=== PATIENT | female | born 1960 | race Caucasian/White ===

== ENCOUNTER 2018-11-02 13:15 | Emergency (ER) | payer OTHER ==
[2018-11-02] MEDS ORDERED: Ondansetron PF 4 MG/2 ML Vial ONE (14:13)
[2018-11-02] MEDS ORDERED: Ketorolac Tromethamine 30 MG/ML VIAL ONE ×2 (14:13→14:16)
[2018-11-02] MEDS ORDERED: Morphine 4 MG/ML VIAL ONE (14:13)
--- NOTE | 2018-11-02 14:27 | RAD ---
3 VIEW LEFT KNEE: Date: 11/02/18 INDICATION: Injury. FINDINGS: There is a large soft tissue hematoma anterior to the left knee. There is mild cephalad location of t he patella. No discrete fracture is seen. IMPRESSION: High-riding patella with prominent hematoma anteriorly. Correlate clinically. POS: TPC
[2018-11-02] MEDS ORDERED: Morphine 2 MG/ML SYRINGE ONE ×2 (15:59→19:56)
[2018-11-02] MEDS ORDERED: Ondansetron PF 4 MG/2 ML Vial IV PRN (16:15)
[2018-11-02] MEDS ORDERED: traMADol HCl 50 MG TAB PO PRN ×2 (16:15)
[2018-11-02] MEDS ORDERED: Morphine 2 MG/ML SYRINGE IVP PRN (16:15)
[2018-11-02] MEDS ORDERED: Acetaminophen 325 MG TAB PO PRN (16:15)
[2018-11-02] MEDS ORDERED: Communication Order-Pharmacy FS SCH (16:15)
[2018-11-02] MEDS ORDERED: TETANUS AND DIPHTHERIA TOX/PF 0.5 ML DISP.SYRIN IM SCH (16:15)
[2018-11-02] MEDS ORDERED: CEFAZOLIN 2 GM in Premix Bag 1 BAG IVPB SCH (16:45)
[2018-11-02 16:47] LABS: Mean Corpuscular HGB CONC 33.5 g/dL (32.0-36.0); Mean Corpuscular Hemoglobin 29.9 pg (27.0-31.0); Mean Platelet Volume 6.5 fL (7.4-10.4); Platelet Count 399 thou/uL (130-400); RBC Distribution Width 11.6 % (11.5-14.5); Red Blood Cell (RBC) Count 5.03 mill/uL (4.20-5.40); White Blood Cell (WBC) Count 12.8 thou/uL (4.8-10.8)
--- NOTE | 2018-11-02 16:51 | HP ---
REQUESTING PHYSICIAN: Landon Patel NP CONSULTING PHYSICIAN: Alejo Cheema MD REASON FOR ADMISSION: Status post fall with a left knee injury. HISTORY OF PRESENT ILLNESS: This is a 58-year-old female, who presented to the [facility] by private vehicle after she suffered a mechanical fall while at work. 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 She was unable to straighten the leg and was unable to bear weight at that time. Workup here in the emergency department revealed evidence of patella jordan without any evidence for fracture, but concern for possible tendon rupture. We were consulted for this reason. Currently at bedside, the patient denies any numbness or tingling. She states she is unable to lift her leg. She denies any history of previous knee injuries. She denies hitting her head or losing consciousness at the time of her fall. PAST MEDICAL HISTORY: The patient states she is healthy and denies any current medical conditions. PAST SURGICAL HISTORY: Include x3 and right ankle surgery x3. FAMILY HISTORY: Reviewed and noncontributory. SOCIAL HISTORY: The patient is single and lives at home in a first-floor apartment alone. 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 She is a nonsmoker and nondrinker. REVIEW OF SYSTEMS: A 10-point review of systems conducted and otherwise negative except for stated above. PHYSICAL EXAMINATION: VITAL SIGNS: Including blood pressure of 149/99, pulse of 99, respiratory rate of 18, temperature of 97.9, and O2 saturation of 99% on room air. Pain level is 9/10. GENERAL: The patient is awake and alert. She is in no apparent distress. She is lying supine on a stretcher at this time. She has 2 work friends who are present in the room with her. She is in no apparent distress. She is pleasant and cooperative with exam today. HEENT: Head is normocephalic and atraumatic. NECK: Supple. Trachea is midline. LUNGS: Breathing is nonlabored. HEART: Regular rate and rhythm. EXTREMITIES: All 4 extremities were evaluated. She moves the upper extremities without any difficulty. She moves the right lower extremity without any difficulty. The left lower extremity was noted to have a large hematoma present to the knee. This is very tense. She is unable to do a straight leg raise. She is able to move her toes and sensation is intact distally. Capillary refill is 2 seconds. When I palpate over the anterior knee, it is difficult to palpate the patella secondary to the hemarthrosis at this time. Skin is intact overlying the knee. Negative log roll. All other extremities show no signs of obvious trauma. NEUROLOGIC: Cranial nerves 2 through 12 grossly intact. RADIOGRAPHIC FINDINGS: Including two views of the left knee demonstrate no evidence for acute fracture. There is evidence for patella jordan. ASSESSMENT: Left knee patellar tendon tear. PLAN: At this time, the patient shows signs of clinical evidence of a patellar tendon tear, status post fall with patella jordan on radiographic imaging and large hemarthrosis. We have discussed several options with her today regarding her treatment plan. We feel that it is best to go ahead and put her in house and keep her n.p.o. at midnight in order to evacuate this hematoma tomorrow and give her some pain relief. At that time, we will repair the patellar tendon. Postoperatively, the patient will have to remain with her leg in extension for approximately 6 to 8 weeks. Weightbearing will be limited in the beginning. She verbalizes understanding of this plan of care. She also understands the risks and benefits associated with surgery. We will plan to proceed with surgery tomorrow. All questions have been answered. Job ID: [id number]
--- NOTE | 2018-11-02 16:56 | RAD ---
XR Chest 1 View Portable History: Injury. Tripped and landed on knee. Comparison: None. Findings: Lungs are clear. No pneumothorax or effusion. Heart size upper limits of normal. No acute o sseous abnormality. Impression: No acute intrathoracic abnormality.
[2018-11-02 17:07] LABS: ALT (SGPT) 51 U/L (8-55); AST (SGOT) 38 U/L (5-34); Albumin 4.4 g/dL (3.5-5.0); Alkaline Phosphatase 55 U/L (40-150); Anion Gap 15 mmol/L (10-20); BUN (Urea Nitrogen) 14 mg/dL (9.8-20.1); Bilirubin, Total 0.7 mg/dL (0.2-1.2); Calc. Creatinine Clearance 0 mL/min (70-130); Calcium 9.9 mg/dL (7.8-10.44); Carbon Dioxide 24 mmol/L (22-29); Chloride 101 mmol/L (98-107); Estimated GFR-MDRD 70; Globulin 3.1 g/dL (2.4-3.5); Glucose 136 mg/dL (70-105); Potassium 4.3 mmol/L (3.5-5.1); Protein, Total 7.5 g/dL (6.0-8.3); Sodium 136 mmol/L (136-145)
[2018-11-02 17:11] LABS: MDiff Complete? YES; Neutrophil 65 % (42-75)
[2018-11-02 17:12] LABS: Band 14 % (5-11); Lymphocytes 10 % (21-51); Monocytes 4 % (0-10); Platelet Morphology Comment Appears Adequate; RBC Morphology Normal; Reactive Lymphocytes 6 % (0-10)
--- NOTE | 2018-11-02 18:53 | RAD ---
RIGHT KNEE TWO VIEWS: 11/02/18 HISTORY: Fall. Pain. FINDINGS: Mild degenerative change in the medial compartment. There is sclerosis and osteophyte formation. Los s of joint space height is noted. No fractures or malalignment. No joint effusion. Mild degenerative change of the patellofemoral compartment. IMPRESSION: No fracture. POS: PPP
--- NOTE | 2018-11-02 19:45 | CON ---
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 She reports that earlier today she tripped in her classroom, landing directly onto her left knee. Since this episode, she has been unable to actively extend her leg at the knee and has been unable to bear weight due to pain. She was seen and evaluated in the emergency room at [facility], where there was concern about a possible patellar tendon rupture due to a radiographic reading of patella jordan as well as this tense hemarthrosis. As such, the patient was now scheduled for admission and possible surgical intervention. The patient had a workup by my physician registered medical assistant. I happened to be in the hospital this evening and decided to stop by and see the patient in the emergency room and that is the basis for this exam. PAST MEDICAL HISTORY: Otherwise healthy. PAST SURGICAL HISTORY: Multiple ankle surgery secondary to instability. SOCIAL HISTORY: The patient lives in the [place] area. 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 She is a nonsmoker. Does not consume recreational drugs or alcohol. FAMILY HISTORY: Noncontributory. PHYSICAL EXAMINATION: VITAL SIGNS: She has a heart rate of 99, respiratory rate of 18, blood pressure of 149/99, and temperature of 97.9. HEENT: Atraumatic and normocephalic. RESPIRATORY: Respiration is unlabored. MUSCULOSKELETAL: Exam is otherwise limited to this left lower extremity with comparison exam of the right knee. The left lower extremity remarkable for an atraumatic hip and ankle. She is wiggling her toes. The patient does have a very large hemarthrosis of the knee with blood extending into the prepatellar bursa as well. When asked to hold her knee in an extended position against gravity, she is unable to do so, although there is a flicker of ability to extend the lower leg. Palpation is very difficult due to the blood within the prepatellar bursa. It is difficult to even palpate the patella, much less the patellar tendon and quadriceps mechanism. She does have ecchymosis that is now beginning to form along the medial aspect of the knee, which was not present on the initial examination. She is exquisitely tender along the path of the medial patellofemoral ligament. She has a very strong apprehension sign as well. IMAGING DATA: X-rays: Two-view x-ray of this knee was obtained earlier today and on my inspection, there is patella jordan, although it is not obviously pathologic. The Insall-Salvati index is measured of 1.16. Today, I obtained a comparison of AP and lateral x-ray of the contralateral knee and the Insall-Salvati index of this knee is 1.14. ASSESSMENT: At this time, I believe the patient has sustained a patellar dislocation or subluxation with hemarthrosis. I believe that based on the comparison x-rays, her normal Insall-Salvati index is approaching 1.2 and that the patella jordan read on plain x-rays is actually her baseline. PLAN: At this time, the patient will be kept in the knee immobilizer. She may be discharged from the emergency room to home. She may be weightbearing as tolerated with a walker while using the knee immobilizer. She should ice the knee and keep it elevated as much as possible. The pain medication will be prescribed by the emergency room staff. I would like to see her in the office in approximately 1 week's time for re-evaluation, and at that time, we will convert her to a patellar stabilizing brace and begin working on gentle range of motion exercises. She appears comfortable with this discussion and plan. We will see her as an outpatient in our clinic in the coming week. Job ID: [id number]
[2018-11-03] MEDS ORDERED: Aspirin 81 mg Enteric Coated Tablet PO SCH (21:00)
--- NOTE | 2018-11-06 13:12 | EKG ---
Test Reason : Blood Pressure : / mmHG Vent. Rate : 098 BPM Atrial Rate : 098 BPM P-R Int : 148 ms QRS Dur : 068 ms QT Int : 338 ms P-R-T Axes : 062 -11 029 degrees QTc Int : 431 ms Normal sinus rhythm Normal ECG Confirmed by SATHISH HAMILTON ([id number]), video effects editor ASHLY COLEMAN ([id number]) on 11/06/2018 1:12:06 PM Referred By: LESLY ROJAS Confirmed By:SATHISH HAMILTON
== END 2018-11-02 20:27 | disposition home or self-care (01) ==
LOC: ERS 13:15
DX: S89.92XA Unspecified injury of left lower leg, initial encounter (principal); W01.0XXA Fall on same level from slipping, tripping and stumbling without subsequent striking against object, initial encounter; Y99.0 Civilian activity done for income or pay
CPT/HCPCS: 36415; 71045; 80053; 85025; 93005; 96372; 96374; 96376; J1885; J2270; J2405

== ENCOUNTER 2020-04-13 15:48 | Inpatient (IN) | payer BC ==
[2020-04-13] MEDS ORDERED: Ondansetron PF 4 MG/2 ML Vial ONE (16:11)
[2020-04-13] MEDS ORDERED: Morphine 4 MG/ML VIAL ONE (16:11)
[2020-04-13 16:25] LABS: #Basophils 0.1 thou/uL (0.0-0.2); #Eosinphils 0.1 thou/uL (0.0-0.7); #Lymphocytes 1.2 thou/uL (1.20-3.40); #Monocytes 0.4 thou/uL (0.11-0.59); #Neutrophils 13.3 thou/uL (1.40-6.50); %Basophils 0.5 % (0.0-1.0); %Eosinophils 0.5 % (0.0-10.0); %Lymphocytes 7.8 % (21.0-51.0); %Monocytes 2.6 % (0.0-10.0); %Neutrophils 88.6 % (42.0-75.0); Hemoglobin 15.5 g/dL (12.0-16.0); Mean Corpuscular HGB CONC 33.3 g/dL (32.0-36.0); Mean Corpuscular Hemoglobin 28.7 pg (27.0-31.0); Mean Corpuscular Volume 86.1 fL (78.0-98.0); Mean Platelet Volume 6.9 fL (7.4-10.4); Platelet Count 433 thou/uL (130-400); RBC Distribution Width 12.3 % (11.5-14.5); White Blood Cell (WBC) Count 15.1 thou/uL (4.8-10.8)
[2020-04-13 16:33] LABS: INR-International Normal Ratio 1.1; PTT 35.2 sec (22.9-36.1); Prothrombin Time 14.1 sec (12.0-14.7)
[2020-04-13] MEDS ORDERED: Cefepime 2 GM VIAL ONE (16:35)
[2020-04-13 16:48] LABS: ALT (SGPT) 37 U/L (8-55); AST (SGOT) 52 U/L (5-34); Albumin 3.4 g/dL (3.5-5.0); Alkaline Phosphatase 99 U/L (40-110); Anion Gap 13 mmol/L (10-20); BUN (Urea Nitrogen) 7 mg/dL (9.8-20.1); Bilirubin, Total 1.2 mg/dL (0.2-1.2); Calc. Creatinine Clearance 0 mL/min (70-130); Calcium 9.2 mg/dL (7.8-10.44); Carbon Dioxide 25 mmol/L (22-29); Chloride 91 mmol/L (98-107); Globulin 3.6 g/dL (2.4-3.5); Glucose 134 mg/dL (70-105); Sodium 124 mmol/L (136-145)
[2020-04-13 18:04] LABS: Base Excess-Venous -4.6 mmol/L (-2.0 to 3.0); Bicarbonate (HCO3v) 21.7 mmol/L (22.0-28.0); CO2 Tension (PvCO2) 43.7 mmHg (40.0-50.0); Calcium, Ionized 0.88 mmol/L (1.15-1.33); Chloride 100 mmol/L (98-107); Potassium 3.2 mmol/L (3.5-5.1); Sodium 132 mmol/L (138-145); vO2 Saturation-calc 65.4 % (60.0-85.0)
[2020-04-13] MEDS ORDERED: Ondansetron ODT 4 MG TAB PO PRN (18:27)
[2020-04-13] MEDS ORDERED: Acetaminophen 325 MG TAB PO PRN (18:27)
[2020-04-13] MEDS ORDERED: Furosemide 20 MG/2 ML VIAL SLOW IVP SCH (18:45)
[2020-04-13 18:53] LABS: SARS-CoV-2 NAA Rapid Test Not Detected (NotDetected)
[2020-04-13] MEDS: HYDROcodone/Acetaminophen 5/325 mg Tablet PO PRN (21:47)
[2020-04-13] MEDS: hydrOXYzine 25 MG TAB PO PRN (23:03)
[2020-04-14] MEDS: Cefepime 2 GM in Sodium Chloride 0.9% 100 ML IVPB SCH ×2 (04:11→16:19)
[2020-04-14] MEDS: HYDROcodone/Acetaminophen 5/325 mg Tablet PO PRN (04:17)
[2020-04-14 04:33] LABS: #Eosinphils 0.1 thou/uL (0.0-0.7); #Lymphocytes 1.1 thou/uL (1.20-3.40); #Monocytes 0.5 thou/uL (0.11-0.59); #Neutrophils 11.1 thou/uL (1.40-6.50); %Basophils 0.4 % (0.0-1.0); %Eosinophils 0.9 % (0.0-10.0); %Lymphocytes 8.7 % (21.0-51.0); %Monocytes 3.6 % (0.0-10.0); %Neutrophils 86.4 % (42.0-75.0); Mean Corpuscular HGB CONC 32.6 g/dL (32.0-36.0); Mean Corpuscular Hemoglobin 28.6 pg (27.0-31.0); Mean Corpuscular Volume 87.8 fL (78.0-98.0); Platelet Count 409 thou/uL (130-400); RBC Distribution Width 12.3 % (11.5-14.5); Red Blood Cell (RBC) Count 5.57 mill/uL (4.20-5.40); White Blood Cell (WBC) Count 12.8 thou/uL (4.8-10.8)
[2020-04-14 04:46] LABS: Anion Gap 16 mmol/L (10-20); BUN (Urea Nitrogen) 8 mg/dL (9.8-20.1); Calc. Creatinine Clearance 135 mL/min (70-130); Calcium 9.5 mg/dL (7.8-10.44); Carbon Dioxide 22 mmol/L (22-29); Chloride 93 mmol/L (98-107); Glucose 94 mg/dL (70-105); Potassium 4.5 mmol/L (3.5-5.1); Sodium 126 mmol/L (136-145)
[2020-04-14] MEDS: Vancomycin 1.5 GRAM/300 ML BAG 1.5 GM in Premix Bag 1 BAG IVPB SCH ×2 (05:41→17:48)
[2020-04-14] MEDS ORDERED: VANCOMYCIN 2 GRAM/400 ML BAG IVPB SCH (06:00)
[2020-04-14 11:59] LABS: Bacteria/HPF None Seen HPF (None Seen); Bilirubin Negative (Negative); Blood, Urine Negative (Negative); Clarity Clear (Clear); Glucose, Urine (Dipstick) Normal (Negative); Ketone, Urine 10 mg/dL (Negative); Leukocyte Negative Leu/uL (Negative); Nitrite Negative (Negative); Protein, Urine (Dipstick) 30 mg/dL (Neg-Trace); RBC/HPF 0-3 HPF (0-3); Specific Gravity, Urine 1.032 (1.002-1.036); Squamous Epithelial 0-3 HPF (0-3); Urobilinogen Normal mg/dL (Less than 2); WBC/HPF 0-3 HPF (0-3); pH, Urine 5.5 (5.0-9.0)
[2020-04-14] MEDS ORDERED: Lidocaine 1% (PF) 30 ML VIAL ONE (14:43)
[2020-04-14] MEDS ORDERED: hydrOXYzine 25 MG TAB PO SCH (14:45)
[2020-04-14] MEDS ORDERED: Lorazepam 2 MG/ML VIAL SLOW IVP SCH (15:00)
[2020-04-14] MEDS: Enoxaparin Sodium 40 MG/0.4 ML SYRINGE SC SCH (16:19)
[2020-04-14 16:29] LABS: Fluid, Triglycerides 15 mg/dL (Not Available); Pleural Fluid, Amylase Less than 30 U/L (Not Available); Pleural Fluid, Glucose 125 mg/dL; Pleural Fluid, LDH 84 U/L (Not Available); Pleural Fluid, Protein 2.9 g/dL
[2020-04-14 16:45] LABS: RBC Count-Automated (BF) 4057 /cu.mm; WBC/Nucleated-Auto (BF) 1662 uL
[2020-04-14 16:47] LABS: BF Color Yellow; Body Fluid Source Pleural Fluid; Clarity Hazy (Clear); Tube # 2
[2020-04-14 16:48] LABS: Fluid, pH - Pleural Fld Greater than 7.50 (7.60 - 7.66)
[2020-04-14 16:51] LABS: BF Segmented Neutrophils 15 %; Cell Count Non Hematic 21 %; Eosinophils 1 %; Lymphocytes 63 %
[2020-04-15] MEDS: Cefepime 2 GM in Sodium Chloride 0.9% 100 ML IVPB SCH ×2 (04:00→15:46)
[2020-04-15 05:25] LABS: #Basophils 0.1 thou/uL (0.0-0.2); #Eosinphils 0.3 thou/uL (0.0-0.7); #Lymphocytes 1.3 thou/uL (1.20-3.40); #Monocytes 0.5 thou/uL (0.11-0.59); #Neutrophils 9.5 thou/uL (1.40-6.50); %Basophils 0.8 % (0.0-1.0); %Eosinophils 2.5 % (0.0-10.0); %Lymphocytes 11.1 % (21.0-51.0); %Monocytes 4.5 % (0.0-10.0); %Neutrophils 81.1 % (42.0-75.0); Hemoglobin 13.6 g/dL (12.0-16.0); Mean Corpuscular HGB CONC 32.9 g/dL (32.0-36.0); Mean Corpuscular Hemoglobin 28.9 pg (27.0-31.0); Mean Corpuscular Volume 87.9 fL (78.0-98.0); Mean Platelet Volume 6.9 fL (7.4-10.4); Platelet Count 373 thou/uL (130-400); RBC Distribution Width 12.4 % (11.5-14.5); Red Blood Cell (RBC) Count 4.71 mill/uL (4.20-5.40); White Blood Cell (WBC) Count 11.7 thou/uL (4.8-10.8)
[2020-04-15 05:42] LABS: Vancomycin, Trough 19.1 ug/mL
[2020-04-15 05:45] LABS: Anion Gap 12 mmol/L (10-20); BUN (Urea Nitrogen) 12 mg/dL (9.8-20.1); Calc. Creatinine Clearance 154 mL/min (70-130); Carbon Dioxide 24 mmol/L (22-29); Chloride 95 mmol/L (98-107); Glucose 117 mg/dL (70-105); Potassium 4.8 mmol/L (3.5-5.1); Sodium 126 mmol/L (136-145)
[2020-04-15] MEDS: VANCOMYCIN 1.25 GM/250 ML BAG 1.25 GM in Premix Bag 1 BAG IVPB SCH ×2 (05:52→18:37)
[2020-04-15] MEDS ORDERED: Vancomycin HCl 1.25 GM in Sodium Chloride 0.9% 250 ML 250 ML IVPB SCH (06:00)
[2020-04-15] MEDS: HYDROcodone/Acetaminophen 5/325 mg Tablet PO PRN ×3 (09:33→20:50)
[2020-04-15] MEDS: Enoxaparin Sodium 40 MG/0.4 ML SYRINGE SC SCH (09:33)
[2020-04-15] MEDS ORDERED: Polyethylene Glycol 3350 17 GM Packet PO PRN (09:41)
[2020-04-15] MEDS: hydrOXYzine 25 MG TAB PO PRN ×2 (10:59→20:49)
[2020-04-15] MEDS: Melatonin 3 MG TAB PO SCH (20:49)
[2020-04-16] MEDS: HYDROcodone/Acetaminophen 5/325 mg Tablet PO PRN ×3 (00:50→15:29)
[2020-04-16] MEDS: hydrOXYzine 25 MG TAB PO PRN ×2 (03:28→05:36)
[2020-04-16] MEDS: Cefepime 2 GM in Sodium Chloride 0.9% 100 ML IVPB SCH ×2 (03:29→18:52)
[2020-04-16 05:24] LABS: #Basophils 0.1 thou/uL (0.0-0.2); #Eosinphils 0.3 thou/uL (0.0-0.7); #Lymphocytes 1.5 thou/uL (1.20-3.40); #Monocytes 0.6 thou/uL (0.11-0.59); #Neutrophils 7.2 thou/uL (1.40-6.50); %Basophils 0.8 % (0.0-1.0); %Eosinophils 2.7 % (0.0-10.0); %Lymphocytes 15.3 % (21.0-51.0); %Monocytes 5.9 % (0.0-10.0); %Neutrophils 75.3 % (42.0-75.0); Hemoglobin 14.2 g/dL (12.0-16.0); Mean Corpuscular HGB CONC 32.1 g/dL (32.0-36.0); Mean Corpuscular Hemoglobin 28.5 pg (27.0-31.0); Mean Corpuscular Volume 88.7 fL (78.0-98.0); Mean Platelet Volume 6.9 fL (7.4-10.4); Platelet Count 383 thou/uL (130-400); RBC Distribution Width 12.2 % (11.5-14.5); Red Blood Cell (RBC) Count 4.97 mill/uL (4.20-5.40); White Blood Cell (WBC) Count 9.6 thou/uL (4.8-10.8)
[2020-04-16] MEDS: VANCOMYCIN 1.25 GM/250 ML BAG 1.25 GM in Premix Bag 1 BAG IVPB SCH ×2 (05:35→19:33)
[2020-04-16 05:45] LABS: Anion Gap 12 mmol/L (10-20); BUN (Urea Nitrogen) 13 mg/dL (9.8-20.1); Calc. Creatinine Clearance 150 mL/min (70-130); Calcium 9.7 mg/dL (7.8-10.44); Carbon Dioxide 25 mmol/L (22-29); Chloride 97 mmol/L (98-107); Glucose 114 mg/dL (70-105); Potassium 4.9 mmol/L (3.5-5.1); Sodium 129 mmol/L (136-145)
[2020-04-16] MEDS: Enoxaparin Sodium 40 MG/0.4 ML SYRINGE SC SCH (09:00)
[2020-04-16] MEDS ORDERED: Levofloxacin 500 mg/D5W 100 ml Premix Bag ONE (09:49)
[2020-04-16] MEDS ORDERED: PROPOFOL 200 MG/20 ML VIAL ONE (10:27)
[2020-04-16] MEDS ORDERED: Rocuronium Bromide 10 MG/ML (10ML VIAL) ONE (10:27)
[2020-04-16] MEDS ORDERED: Glycopyrrolate 0.2 MG/ML 5 ML SYRINGE ONE (10:27)
[2020-04-16] MEDS ORDERED: Ondansetron PF 4 MG/2 ML Vial ONE (10:27)
[2020-04-16] MEDS ORDERED: Lidocaine 1% PF 5 ML VIAL ONE (10:27)
[2020-04-16] MEDS ORDERED: PHENYLEPHRINE-NS 100 MCG/ML 10 ML SYRINGE ONE (10:27)
[2020-04-16] MEDS ORDERED: Bupivacaine 0.25% HCL 30 ML VIAL ONE (11:56)
[2020-04-16] MEDS ORDERED: Bupivacaine PF 0.5% 30 ML VIAL ONE (11:56)
[2020-04-16] MEDS ORDERED: XYLOCAINE 2%-EPI 1:100,000 20 ML VIAL ONE (11:56)
[2020-04-16] MEDS ORDERED: Lidocaine 2% PF 5 ML VIAL ONE (11:56)
[2020-04-16] MEDS ORDERED: Fentanyl 100 MCG/2 ML VIAL ONE ×3 (11:58→14:04)
[2020-04-16] MEDS ORDERED: Phenylephrine 10 MG/ML VIAL ONE (11:58)
[2020-04-16] MEDS ORDERED: Famotidine/PF 20 mg/2ml Vial ONE (12:59)
[2020-04-16] MEDS ORDERED: SUGAMMADEX SODIUM 500 MG/5 ML VIAL ONE (13:29)
[2020-04-16] MEDS ORDERED: Acetaminophen 500 MG TAB PO PRN (13:34)
[2020-04-16] MEDS ORDERED: traMADol HCl 50 MG TAB PO PRN (13:34)
[2020-04-16] MEDS ORDERED: hydrOXYzine 10 MG TAB PO PRN (16:30)
[2020-04-16 17:44] LABS: Vancomycin, Trough 15.8 ug/mL
[2020-04-16] MEDS ORDERED: Furosemide 40 MG/4 ML VIAL ONE (20:36)
[2020-04-16 21:03] LABS: #Basophils 0.1 thou/uL (0.0-0.2); #Eosinphils 0.1 thou/uL (0.0-0.7); #Monocytes 0.5 thou/uL (0.11-0.59); #Neutrophils 11.4 thou/uL (1.40-6.50); %Basophils 0.4 % (0.0-1.0); %Eosinophils 0.4 % (0.0-10.0); %Lymphocytes 7.7 % (21.0-51.0); %Monocytes 3.8 % (0.0-10.0); %Neutrophils 87.7 % (42.0-75.0); Mean Corpuscular HGB CONC 31.9 g/dL (32.0-36.0); Mean Corpuscular Hemoglobin 28.6 pg (27.0-31.0); Mean Corpuscular Volume 89.5 fL (78.0-98.0); Mean Platelet Volume 6.6 fL (7.4-10.4); Platelet Count 459 thou/uL (130-400); RBC Distribution Width 12.5 % (11.5-14.5); Red Blood Cell (RBC) Count 5.24 mill/uL (4.20-5.40)
[2020-04-16 21:09] LABS: Actual Bicarbonate (HCO3a) 27.4 mEq/L (22-28); Analyzer IN Cardio OR; Base Excess (BEa) -4.2 mEq/L (-2.0 to +3.0); Calcium, Ionized (arterial) 1.33 mmol/L (1.12-1.30); Hemoglobin (Hb) 15.2 g/dL (12.0-16.0); O2 Tension (PaO2), arterial 138.8 mmHg (> 80.0); Potassium - ABG Lab 5.32 mmol/L (3.70-5.30)
[2020-04-16 21:10] LABS: pH, Arterial 7.13 (7.35-7.45)
[2020-04-16 21:11] LABS: CO2 Tension 83.8 mmHg (35.0-45.0); Puncture Site LRA
[2020-04-16 21:40] LABS: ALT (SGPT) 18 U/L (8-55); AST (SGOT) 26 U/L (5-34); Albumin 3.4 g/dL (3.5-5.0); Alkaline Phosphatase 94 U/L (40-110); Anion Gap 15 mmol/L (10-20); BUN (Urea Nitrogen) 13 mg/dL (9.8-20.1); Bilirubin, Total 0.5 mg/dL (0.2-1.2); Calc. Creatinine Clearance 157 mL/min (70-130); Calcium 9.9 mg/dL (7.8-10.44); Carbon Dioxide 25 mmol/L (22-29); Chloride 97 mmol/L (98-107); Globulin 3.5 g/dL (2.4-3.5); Glucose 141 mg/dL (70-105); Potassium 5.6 mmol/L (3.5-5.1); Protein, Total 6.9 g/dL (6.0-8.3); Sodium 131 mmol/L (136-145)
[2020-04-16 22:02] LABS: CKMB 2.8 ng/mL (0-6.6)
[2020-04-16] MEDS: Melatonin 3 MG TAB PO SCH (22:11)
[2020-04-16] MEDS ORDERED: Furosemide 40 MG/4 ML VIAL SLOW IVP STA (22:34)
[2020-04-17] MEDS ORDERED: Lorazepam 2 MG/ML VIAL SLOW IVP PRN (00:01)
[2020-04-17 00:58] LABS: Anion Gap 13 mmol/L (10-20); BUN (Urea Nitrogen) 13 mg/dL (9.8-20.1); Calc. Creatinine Clearance 153 mL/min (70-130); Calcium 9.6 mg/dL (7.8-10.44); Carbon Dioxide 28 mmol/L (22-29); Chloride 95 mmol/L (98-107); Glucose 115 mg/dL (70-105); Potassium 4.6 mmol/L (3.5-5.1); Sodium 131 mmol/L (136-145)
[2020-04-17 01:04] LABS: Troponin I 0.111 ng/mL (< 0.028)
[2020-04-17] MEDS: Cefepime 2 GM in Sodium Chloride 0.9% 100 ML IVPB SCH ×3 (03:44→17:34)
[2020-04-17 03:52] LABS: #Eosinphils 0.1 thou/uL (0.0-0.7); #Lymphocytes 0.8 thou/uL (1.20-3.40); #Monocytes 0.6 thou/uL (0.11-0.59); #Neutrophils 9.6 thou/uL (1.40-6.50); %Basophils 0.4 % (0.0-1.0); %Eosinophils 0.5 % (0.0-10.0); %Lymphocytes 7.5 % (21.0-51.0); %Monocytes 4.9 % (0.0-10.0); %Neutrophils 86.7 % (42.0-75.0); Hemoglobin 13.2 g/dL (12.0-16.0); Mean Corpuscular Hemoglobin 28.5 pg (27.0-31.0); Mean Corpuscular Volume 88.9 fL (78.0-98.0); Mean Platelet Volume 6.6 fL (7.4-10.4); Platelet Count 383 thou/uL (130-400); RBC Distribution Width 12.2 % (11.5-14.5); Red Blood Cell (RBC) Count 4.65 mill/uL (4.20-5.40); White Blood Cell (WBC) Count 11.1 thou/uL (4.8-10.8)
[2020-04-17 04:12] LABS: Anion Gap 13 mmol/L (10-20); BUN (Urea Nitrogen) 13 mg/dL (9.8-20.1); Calc. Creatinine Clearance 158 mL/min (70-130); Calcium 9.6 mg/dL (7.8-10.44); Carbon Dioxide 27 mmol/L (22-29); Chloride 95 mmol/L (98-107); Glucose 107 mg/dL (70-105); Potassium 4.7 mmol/L (3.5-5.1); Sodium 130 mmol/L (136-145)
[2020-04-17] MEDS ORDERED: Furosemide 20 MG/2 ML VIAL SLOW IVP SCH (04:30)
[2020-04-17] MEDS: VANCOMYCIN 1.25 GM/250 ML BAG 1.25 GM in Premix Bag 1 BAG IVPB SCH ×2 (05:34→18:11)
[2020-04-17] MEDS: Enoxaparin Sodium 40 MG/0.4 ML SYRINGE SC SCH (08:30)
[2020-04-17] MEDS ORDERED: Simethicone Chewable 80 MG TAB PO PRN (09:29)
[2020-04-17] MEDS: hydrOXYzine 25 MG TAB PO PRN ×2 (09:35→19:48)
[2020-04-17] MEDS ORDERED: Morphine 2 MG/ML VIAL SLOW IVP SCH (09:45)
[2020-04-17] MEDS ORDERED: Morphine 2 MG/ML VIAL ONE (09:47)
[2020-04-17] MEDS: HYDROcodone/Acetaminophen 5/325 mg Tablet PO PRN ×2 (12:02→21:27)
[2020-04-17] MEDS ORDERED: Furosemide 40 MG/4 ML VIAL SLOW IVP SCH (12:15)
[2020-04-17] MEDS: Melatonin 3 MG TAB PO SCH (21:01)
[2020-04-18] MEDS: Cefepime 2 GM in Sodium Chloride 0.9% 100 ML IVPB SCH ×3 (02:00→20:53)
[2020-04-18] MEDS: hydrOXYzine 25 MG TAB PO PRN ×3 (03:39→20:52)
[2020-04-18] MEDS: HYDROcodone/Acetaminophen 5/325 mg Tablet PO PRN ×2 (03:42→20:52)
[2020-04-18 03:46] LABS: #Basophils 0.1 thou/uL (0.0-0.2); #Eosinphils 0.2 thou/uL (0.0-0.7); #Lymphocytes 0.9 thou/uL (1.20-3.40); #Monocytes 0.6 thou/uL (0.11-0.59); %Basophils 0.5 % (0.0-1.0); %Eosinophils 1.5 % (0.0-10.0); %Lymphocytes 8.7 % (21.0-51.0); %Monocytes 5.4 % (0.0-10.0); %Neutrophils 83.9 % (42.0-75.0); Hemoglobin 13.9 g/dL (12.0-16.0); Mean Corpuscular HGB CONC 32.2 g/dL (32.0-36.0); Mean Corpuscular Hemoglobin 28.6 pg (27.0-31.0); Mean Corpuscular Volume 89.1 fL (78.0-98.0); Mean Platelet Volume 6.7 fL (7.4-10.4); Platelet Count 378 thou/uL (130-400); RBC Distribution Width 12.2 % (11.5-14.5); Red Blood Cell (RBC) Count 4.84 mill/uL (4.20-5.40); White Blood Cell (WBC) Count 10.7 thou/uL (4.8-10.8)
[2020-04-18 04:09] LABS: Anion Gap 13 mmol/L (10-20); BUN (Urea Nitrogen) 18 mg/dL (9.8-20.1); Calc. Creatinine Clearance 163 mL/min (70-130); Calcium 10.2 mg/dL (7.8-10.44); Carbon Dioxide 27 mmol/L (22-29); Chloride 96 mmol/L (98-107); Glucose 107 mg/dL (70-105); Potassium 4.4 mmol/L (3.5-5.1); Sodium 132 mmol/L (136-145)
[2020-04-18] MEDS: VANCOMYCIN 1.25 GM/250 ML BAG 1.25 GM in Premix Bag 1 BAG IVPB SCH ×2 (05:10→17:23)
[2020-04-18] MEDS: Enoxaparin Sodium 40 MG/0.4 ML SYRINGE SC SCH (09:14)
[2020-04-18] MEDS: HYDROcodone/Acetaminophen 10/325 mg Tablet PO PRN (11:58)
[2020-04-18 13:24] LABS: Actual Bicarbonate (HCO3a) 31.5 mEq/L (22-28); CO2 Tension 59.2 mmHg (35.0-45.0); Calcium, Ionized (arterial) 1.39 mmol/L (1.12-1.30); Carboxyhemoglobin (COHb) 0.8 gm% (0.0-3.0); Hemoglobin (Hb) 14.9 g/dL (12.0-16.0); Potassium - ABG Lab 4.44 mmol/L (3.70-5.30); pH, Arterial 7.34 (7.35-7.45)
[2020-04-18 13:26] LABS: Puncture Site RRA
[2020-04-18] MEDS: Melatonin 3 MG TAB PO SCH (20:53)
[2020-04-19] MEDS: Cefepime 2 GM in Sodium Chloride 0.9% 100 ML IVPB SCH ×3 (03:46→20:22)
[2020-04-19 04:06] LABS: #Basophils 0.1 thou/uL (0.0-0.2); #Eosinphils 0.2 thou/uL (0.0-0.7); #Lymphocytes 0.8 thou/uL (1.20-3.40); #Monocytes 0.4 thou/uL (0.11-0.59); #Neutrophils 6.3 thou/uL (1.40-6.50); %Basophils 0.9 % (0.0-1.0); %Eosinophils 2.4 % (0.0-10.0); %Lymphocytes 10.7 % (21.0-51.0); %Monocytes 5.5 % (0.0-10.0); %Neutrophils 80.6 % (42.0-75.0); Hemoglobin 13.5 g/dL (12.0-16.0); Mean Corpuscular HGB CONC 32.5 g/dL (32.0-36.0); Mean Corpuscular Volume 89.2 fL (78.0-98.0); Mean Platelet Volume 6.8 fL (7.4-10.4); Platelet Count 398 thou/uL (130-400); RBC Distribution Width 12.3 % (11.5-14.5); Red Blood Cell (RBC) Count 4.65 mill/uL (4.20-5.40); White Blood Cell (WBC) Count 7.8 thou/uL (4.8-10.8)
[2020-04-19] MEDS: hydrOXYzine 25 MG TAB PO PRN ×2 (04:07→22:44)
[2020-04-19] MEDS: HYDROcodone/Acetaminophen 5/325 mg Tablet PO PRN ×2 (04:33→22:43)
[2020-04-19 04:39] LABS: Anion Gap 10 mmol/L (10-20); BUN (Urea Nitrogen) 20 mg/dL (9.8-20.1); Calc. Creatinine Clearance 180 mL/min (70-130); Calcium 10.7 mg/dL (7.8-10.44); Carbon Dioxide 32 mmol/L (22-29); Chloride 97 mmol/L (98-107); Glucose 88 mg/dL (70-105); Potassium 4.1 mmol/L (3.5-5.1); Sodium 135 mmol/L (136-145)
[2020-04-19 05:35] LABS: Actual Bicarbonate (HCO3a) 29.3 mEq/L (22-28); Base Excess (BEa) 2.7 mEq/L (-2.0 to +3.0); CO2 Tension 52.9 mmHg (35.0-45.0); Calcium, Ionized (arterial) 1.41 mmol/L (1.12-1.30); Carboxyhemoglobin (COHb) 0.7 gm% (0.0-3.0); Hemoglobin (Hb) 14.7 g/dL (12.0-16.0); pH, Arterial 7.36 (7.35-7.45)
[2020-04-19 05:39] LABS: Puncture Site LRA
[2020-04-19] MEDS ORDERED: Lorazepam 1 MG TAB PO SCH (05:45)
[2020-04-19] MEDS: VANCOMYCIN 1.25 GM/250 ML BAG 1.25 GM in Premix Bag 1 BAG IVPB SCH ×2 (05:49→17:26)
[2020-04-19] MEDS ORDERED: Furosemide 20 MG/2 ML VIAL SLOW IVP SCH (06:15)
[2020-04-19] MEDS: Enoxaparin Sodium 40 MG/0.4 ML SYRINGE SC SCH (09:21)
[2020-04-19] MEDS ORDERED: Sodium Chloride 0.9% (PF) 10 ML VIAL FS PRN (11:15)
[2020-04-19 13:05] LABS: Thyroid Stimulating Hormone 1.6667 uIU/mL (0.35-4.94); Vitamin D, 25 Hydroxy 51.5 ng/ml (> 30.0)
[2020-04-19] MEDS: Pantoprazole 40 MG VIAL IVP SCH (14:37)
[2020-04-19 14:47] LABS: Phosphorus 2.5 mg/dL (2.3-4.7)
[2020-04-19] MEDS ORDERED: EPINEPHrine 1 MG/ML AMP ONE (15:09)
[2020-04-19] MEDS ORDERED: Bupivacaine PF 0.5% 30 ML VIAL ONE (15:09)
[2020-04-19] MEDS ORDERED: Midazolam HCl 2 mg/2 ml Vial ONE (15:44)
[2020-04-19] MEDS ORDERED: Fentanyl 100 MCG/2 ML VIAL ONE (15:44)
[2020-04-19 17:32] LABS: Vancomycin, Trough 16.1 ug/mL
[2020-04-19] MEDS: Melatonin 3 MG TAB PO SCH (20:22)
[2020-04-20] MEDS: Cefepime 2 GM in Sodium Chloride 0.9% 100 ML IVPB SCH ×2 (02:31→10:37)
[2020-04-20 04:36] LABS: #Basophils 0.1 thou/uL (0.0-0.2); #Eosinphils 0.2 thou/uL (0.0-0.7); #Lymphocytes 0.8 thou/uL (1.20-3.40); #Monocytes 0.3 thou/uL (0.11-0.59); #Neutrophils 7.4 thou/uL (1.40-6.50); %Basophils 0.8 % (0.0-1.0); %Eosinophils 1.8 % (0.0-10.0); %Monocytes 3.5 % (0.0-10.0); %Neutrophils 84.9 % (42.0-75.0); Hemoglobin 13.2 g/dL (12.0-16.0); Mean Corpuscular HGB CONC 31.1 g/dL (32.0-36.0); Mean Corpuscular Hemoglobin 27.5 pg (27.0-31.0); Mean Corpuscular Volume 88.5 fL (78.0-98.0); Platelet Count 386 thou/uL (130-400); RBC Distribution Width 12.4 % (11.5-14.5); Red Blood Cell (RBC) Count 4.81 mill/uL (4.20-5.40); White Blood Cell (WBC) Count 8.8 thou/uL (4.8-10.8)
[2020-04-20 04:39] LABS: Anion Gap 11 mmol/L (10-20); BUN (Urea Nitrogen) 23 mg/dL (9.8-20.1); Calc. Creatinine Clearance 178 mL/min (70-130); Carbon Dioxide 31 mmol/L (22-29); Chloride 99 mmol/L (98-107); Glucose 84 mg/dL (70-105); Potassium 4.1 mmol/L (3.5-5.1); Sodium 137 mmol/L (136-145)
[2020-04-20] MEDS: VANCOMYCIN 1.25 GM/250 ML BAG 1.25 GM in Premix Bag 1 BAG IVPB SCH (05:42)
[2020-04-20] MEDS: Enoxaparin Sodium 40 MG/0.4 ML SYRINGE SC SCH (08:48)
[2020-04-20] MEDS: Pantoprazole 40 MG VIAL IVP SCH (08:48)
[2020-04-20] MEDS: Morphine 2 MG/ML VIAL SLOW IVP PRN ×2 (13:59→20:35)
[2020-04-20] MEDS: Melatonin 3 MG TAB PO SCH (20:36)
[2020-04-20] MEDS: HYDROcodone/Acetaminophen 10/325 mg Tablet PO PRN (21:33)
[2020-04-21 04:11] LABS: #Basophils 0.1 thou/uL (0.0-0.2); #Eosinphils 0.2 thou/uL (0.0-0.7); #Lymphocytes 0.9 thou/uL (1.20-3.40); #Monocytes 0.3 thou/uL (0.11-0.59); %Basophils 0.6 % (0.0-1.0); %Lymphocytes 10.7 % (21.0-51.0); %Monocytes 3.7 % (0.0-10.0); %Neutrophils 83.1 % (42.0-75.0); Hemoglobin 13.6 g/dL (12.0-16.0); Mean Corpuscular HGB CONC 32.3 g/dL (32.0-36.0); Mean Corpuscular Hemoglobin 28.5 pg (27.0-31.0); Mean Corpuscular Volume 88.3 fL (78.0-98.0); Mean Platelet Volume 6.8 fL (7.4-10.4); Platelet Count 368 thou/uL (130-400); RBC Distribution Width 12.5 % (11.5-14.5); Red Blood Cell (RBC) Count 4.78 mill/uL (4.20-5.40); White Blood Cell (WBC) Count 8.4 thou/uL (4.8-10.8)
[2020-04-21 04:34] LABS: Anion Gap 15 mmol/L (10-20); BUN (Urea Nitrogen) 24 mg/dL (9.8-20.1); Calc. Creatinine Clearance 188 mL/min (70-130); Calcium 10.2 mg/dL (7.8-10.44); Carbon Dioxide 29 mmol/L (22-29); Chloride 99 mmol/L (98-107); Glucose 83 mg/dL (70-105); Potassium 4.1 mmol/L (3.5-5.1); Sodium 139 mmol/L (136-145)
[2020-04-21] MEDS: Morphine 2 MG/ML VIAL SLOW IVP PRN ×3 (06:36→22:13)
[2020-04-21] MEDS: hydrOXYzine 25 MG TAB PO PRN (07:33)
[2020-04-21] MEDS: Pantoprazole 40 MG VIAL IVP SCH (07:33)
[2020-04-21] MEDS: Enoxaparin Sodium 40 MG/0.4 ML SYRINGE SC SCH (07:34)
[2020-04-21] MEDS: HYDROcodone/Acetaminophen 5/325 mg Tablet PO PRN ×2 (07:34→16:56)
[2020-04-21] MEDS ORDERED: Lorazepam 2 MG/ML VIAL ONE (08:15)
[2020-04-21] MEDS ORDERED: Lorazepam 2 MG/ML VIAL SLOW IVP SCH (08:45)
[2020-04-21] MEDS: Lorazepam 2 MG/ML VIAL SLOW IVP PRN ×2 (14:16→22:13)
[2020-04-21] MEDS: Melatonin 3 MG TAB PO SCH (20:06)
[2020-04-22 07:03] LABS: #Basophils 0.1 thou/uL (0.0-0.2); #Eosinphils 0.2 thou/uL (0.0-0.7); #Lymphocytes 0.9 thou/uL (1.20-3.40); #Monocytes 0.4 thou/uL (0.11-0.59); #Neutrophils 7.8 thou/uL (1.40-6.50); %Basophils 0.8 % (0.0-1.0); %Eosinophils 2.3 % (0.0-10.0); %Lymphocytes 9.7 % (21.0-51.0); %Monocytes 4.6 % (0.0-10.0); %Neutrophils 82.6 % (42.0-75.0); Hemoglobin 13.3 g/dL (12.0-16.0); Mean Corpuscular HGB CONC 31.7 g/dL (32.0-36.0); Mean Corpuscular Hemoglobin 28.2 pg (27.0-31.0); Mean Platelet Volume 7.3 fL (7.4-10.4); Platelet Count 360 thou/uL (130-400); RBC Distribution Width 12.6 % (11.5-14.5); Red Blood Cell (RBC) Count 4.72 mill/uL (4.20-5.40); White Blood Cell (WBC) Count 9.4 thou/uL (4.8-10.8)
[2020-04-22] MEDS: Lorazepam 2 MG/ML VIAL SLOW IVP PRN ×3 (07:09→22:45)
[2020-04-22 07:24] LABS: Anion Gap 13 mmol/L (10-20); BUN (Urea Nitrogen) 24 mg/dL (9.8-20.1); Calc. Creatinine Clearance 181 mL/min (70-130); Calcium 10.4 mg/dL (7.8-10.44); Carbon Dioxide 32 mmol/L (22-29); Chloride 97 mmol/L (98-107); Glucose 71 mg/dL (70-105); Potassium 4.1 mmol/L (3.5-5.1); Sodium 138 mmol/L (136-145)
[2020-04-22] MEDS: Morphine 2 MG/ML VIAL SLOW IVP PRN ×2 (08:23→15:15)
[2020-04-22] MEDS: Pantoprazole 40 MG VIAL IVP SCH (11:32)
[2020-04-22] MEDS: Enoxaparin Sodium 40 MG/0.4 ML SYRINGE SC SCH (11:32)
[2020-04-22] MEDS: Melatonin 3 MG TAB PO SCH (20:22)
[2020-04-22] MEDS: hydrOXYzine 25 MG TAB PO PRN (20:23)
[2020-04-23 06:24] LABS: #Basophils 0.1 thou/uL (0.0-0.2); #Eosinphils 0.2 thou/uL (0.0-0.7); #Lymphocytes 0.9 thou/uL (1.20-3.40); #Monocytes 0.4 thou/uL (0.11-0.59); #Neutrophils 6.8 thou/uL (1.40-6.50); %Basophils 0.9 % (0.0-1.0); %Eosinophils 2.3 % (0.0-10.0); %Lymphocytes 10.5 % (21.0-51.0); %Neutrophils 81.3 % (42.0-75.0); Hemoglobin 13.8 g/dL (12.0-16.0); Mean Corpuscular Hemoglobin 28.4 pg (27.0-31.0); Mean Platelet Volume 6.9 fL (7.4-10.4); Platelet Count 356 thou/uL (130-400); RBC Distribution Width 12.6 % (11.5-14.5); Red Blood Cell (RBC) Count 4.85 mill/uL (4.20-5.40); White Blood Cell (WBC) Count 8.3 thou/uL (4.8-10.8)
[2020-04-23 06:50] LABS: Anion Gap 13 mmol/L (10-20); BUN (Urea Nitrogen) 20 mg/dL (9.8-20.1); Calc. Creatinine Clearance 171 mL/min (70-130); Calcium 10.5 mg/dL (7.8-10.44); Carbon Dioxide 34 mmol/L (22-29); Chloride 98 mmol/L (98-107); Glucose 102 mg/dL (70-105); Sodium 141 mmol/L (136-145)
[2020-04-23] MEDS ORDERED: Rocuronium Bromide 10 MG/ML (10ML VIAL) ONE (10:20)
[2020-04-23] MEDS ORDERED: PROPOFOL 200 MG/20 ML VIAL ONE (10:20)
[2020-04-23] MEDS ORDERED: Midazolam HCl 2 mg/2 ml Vial ONE (11:12)
[2020-04-23] MEDS ORDERED: SUGAMMADEX SODIUM 200 MG/2 ML VIAL ONE (11:53)
[2020-04-23] MEDS ORDERED: Ondansetron HCl/PF 4 MG/2 ML Vial IVP PRN (12:36)
[2020-04-23] MEDS ORDERED: Promethazine HCl 25 MG/ML VIAL IM PRN (12:36)
[2020-04-23] MEDS ORDERED: Promethazine HCl 25 MG/ML VIAL SLOW IVP PRN (12:36)
[2020-04-23] MEDS ORDERED: Labetalol HCl 100 MG/20 ML VIAL ONE (12:55)
[2020-04-23] MEDS: Enoxaparin Sodium 40 MG/0.4 ML SYRINGE SC SCH (13:27)
[2020-04-23] MEDS: Polyethylene Glycol 3350 17 GM Packet PO SCH (13:27)
[2020-04-23] MEDS: Docusate 100 MG CAP PO SCH ×2 (13:27→20:11)
[2020-04-23] MEDS: Morphine 2 MG/ML VIAL SLOW IVP PRN ×2 (13:41→20:20)
[2020-04-23] MEDS: Pantoprazole 40 MG VIAL IVP SCH (13:42)
[2020-04-23] MEDS: Letrozole 2.5 MG TAB PO SCH (13:42)
[2020-04-23] MEDS: Lorazepam 2 MG/ML VIAL SLOW IVP PRN ×2 (14:31→20:11)
[2020-04-23] MEDS: Dexamethasone 4 MG TAB PO SCH (18:31)
[2020-04-23] MEDS: Melatonin 3 MG TAB PO SCH (20:11)
[2020-04-24] MEDS: Lorazepam 2 MG/ML VIAL SLOW IVP PRN ×3 (01:57→19:29)
[2020-04-24] MEDS: Morphine 2 MG/ML VIAL SLOW IVP PRN ×3 (02:28→19:29)
[2020-04-24 06:13] LABS: #Lymphocytes 0.5 thou/uL (1.20-3.40); #Monocytes 0.1 thou/uL (0.11-0.59); #Neutrophils 9.1 thou/uL (1.40-6.50); %Basophils 0.2 % (0.0-1.0); %Eosinophils 0.2 % (0.0-10.0); %Lymphocytes 5.5 % (21.0-51.0); %Monocytes 0.7 % (0.0-10.0); %Neutrophils 93.4 % (42.0-75.0); Hemoglobin 14.6 g/dL (12.0-16.0); Mean Corpuscular HGB CONC 31.5 g/dL (32.0-36.0); Mean Corpuscular Hemoglobin 28.1 pg (27.0-31.0); Mean Corpuscular Volume 89.2 fL (78.0-98.0); Mean Platelet Volume 7.6 fL (7.4-10.4); Platelet Count 372 thou/uL (130-400); RBC Distribution Width 12.6 % (11.5-14.5); Red Blood Cell (RBC) Count 5.19 mill/uL (4.20-5.40); White Blood Cell (WBC) Count 9.7 thou/uL (4.8-10.8)
[2020-04-24 06:34] LABS: Anion Gap 11 mmol/L (10-20); BUN (Urea Nitrogen) 17 mg/dL (9.8-20.1); Calc. Creatinine Clearance 171 mL/min (70-130); Calcium 10.7 mg/dL (7.8-10.44); Carbon Dioxide 36 mmol/L (22-29); Chloride 94 mmol/L (98-107); Glucose 140 mg/dL (70-105); Potassium 4.9 mmol/L (3.5-5.1); Sodium 136 mmol/L (136-145)
[2020-04-24] MEDS: Dexamethasone 4 MG TAB PO SCH ×3 (09:13→17:52)
[2020-04-24] MEDS: Polyethylene Glycol 3350 17 GM Packet PO SCH (09:14)
[2020-04-24] MEDS: Docusate 100 MG CAP PO SCH ×2 (09:14→21:42)
[2020-04-24] MEDS: Pantoprazole 40 MG VIAL IVP SCH (09:14)
[2020-04-24] MEDS: Letrozole 2.5 MG TAB PO SCH (09:14)
[2020-04-24] MEDS: Enoxaparin Sodium 40 MG/0.4 ML SYRINGE SC SCH (09:16)
[2020-04-24] MEDS: HYDROcodone/Acetaminophen 10/325 mg Tablet PO PRN ×2 (12:02→17:51)
[2020-04-24] MEDS: Melatonin 3 MG TAB PO SCH ×2 (21:42→23:17)
[2020-04-25] MEDS ORDERED: Zoledronic Acid 4 MG in Sodium Chloride 0.9% 100 ML IVPB SCH (03:30)
[2020-04-25 04:46] LABS: Anion Gap 14 mmol/L (10-20); BUN (Urea Nitrogen) 22 mg/dL (9.8-20.1); Calc. Creatinine Clearance 174 mL/min (70-130); Calcium 10.8 mg/dL (7.8-10.44); Carbon Dioxide 34 mmol/L (22-29); Chloride 91 mmol/L (98-107); Glucose 151 mg/dL (70-105); Sodium 134 mmol/L (136-145)
[2020-04-25 05:59] LABS: #Basophils 0.1 thou/uL (0.0-0.2); #Lymphocytes 0.5 thou/uL (1.20-3.40); #Monocytes 0.3 thou/uL (0.11-0.59); #Neutrophils 13.9 thou/uL (1.40-6.50); %Basophils 0.3 % (0.0-1.0); %Eosinophils 0.1 % (0.0-10.0); %Lymphocytes 3.3 % (21.0-51.0); %Neutrophils 94.3 % (42.0-75.0); Hemoglobin 13.5 g/dL (12.0-16.0); Mean Corpuscular HGB CONC 29.3 g/dL (32.0-36.0); Mean Corpuscular Hemoglobin 26.9 pg (27.0-31.0); Mean Corpuscular Volume 91.6 fL (78.0-98.0); Mean Platelet Volume 7.5 fL (7.4-10.4); Platelet Count 407 thou/uL (130-400); RBC Distribution Width 12.5 % (11.5-14.5); RBC Morphology Normal; White Blood Cell (WBC) Count 14.8 thou/uL (4.8-10.8)
[2020-04-25] MEDS: Pantoprazole 40 MG VIAL IVP SCH (08:15)
[2020-04-25] MEDS: Docusate 100 MG CAP PO SCH ×2 (08:15→20:37)
[2020-04-25] MEDS: Enoxaparin Sodium 40 MG/0.4 ML SYRINGE SC SCH (08:16)
[2020-04-25] MEDS: Polyethylene Glycol 3350 17 GM Packet PO SCH (08:17)
[2020-04-25] MEDS: Letrozole 2.5 MG TAB PO SCH (08:17)
[2020-04-25] MEDS: Dexamethasone 4 MG TAB PO SCH ×3 (08:17→17:51)
[2020-04-25] MEDS: Morphine 2 MG/ML VIAL SLOW IVP PRN ×2 (08:43→23:59)
[2020-04-25] MEDS: Ondansetron PF 4 MG/2 ML Vial IVP PRN (11:47)
[2020-04-25 13:53] VITALS: BMI 38.4
[2020-04-25] MEDS: Melatonin 3 MG TAB PO SCH (20:37)
[2020-04-25] MEDS: Lorazepam 2 MG/ML VIAL SLOW IVP PRN (23:59)
[2020-04-26 04:51] LABS: #Basophils 0.1 thou/uL (0.0-0.2); #Lymphocytes 0.7 thou/uL (1.20-3.40); #Monocytes 0.6 thou/uL (0.11-0.59); #Neutrophils 15.1 thou/uL (1.40-6.50); %Basophils 0.3 % (0.0-1.0); %Lymphocytes 4.3 % (21.0-51.0); %Monocytes 3.7 % (0.0-10.0); %Neutrophils 91.6 % (42.0-75.0); Hemoglobin 14.4 g/dL (12.0-16.0); Mean Corpuscular HGB CONC 31.1 g/dL (32.0-36.0); Mean Corpuscular Hemoglobin 28.2 pg (27.0-31.0); Mean Corpuscular Volume 90.5 fL (78.0-98.0); Mean Platelet Volume 7.6 fL (7.4-10.4); Platelet Count 435 thou/uL (130-400); RBC Distribution Width 12.6 % (11.5-14.5); Red Blood Cell (RBC) Count 5.11 mill/uL (4.20-5.40); White Blood Cell (WBC) Count 16.5 thou/uL (4.8-10.8)
[2020-04-26 05:15] LABS: Anion Gap 12 mmol/L (10-20); BUN (Urea Nitrogen) 22 mg/dL (9.8-20.1); Calc. Creatinine Clearance 168 mL/min (70-130); Calcium 9.9 mg/dL (7.8-10.44); Carbon Dioxide 36 mmol/L (22-29); Chloride 88 mmol/L (98-107); Glucose 152 mg/dL (70-105); Potassium 4.6 mmol/L (3.5-5.1); Sodium 131 mmol/L (136-145)
[2020-04-26] MEDS: Morphine 2 MG/ML VIAL SLOW IVP PRN (08:19)
[2020-04-26] MEDS: Pantoprazole 40 MG VIAL IVP SCH (08:20)
[2020-04-26] MEDS: Letrozole 2.5 MG TAB PO SCH (08:26)
[2020-04-26] MEDS: Ondansetron PF 4 MG/2 ML Vial IVP PRN (08:26)
[2020-04-26] MEDS: Docusate 100 MG CAP PO SCH ×2 (08:26→21:42)
[2020-04-26] MEDS: Dexamethasone 4 MG TAB PO SCH ×3 (08:26→21:42)
[2020-04-26] MEDS: Enoxaparin Sodium 40 MG/0.4 ML SYRINGE SC SCH (08:27)
[2020-04-26] MEDS: Polyethylene Glycol 3350 17 GM Packet PO SCH (08:27)
[2020-04-26] MEDS: Melatonin 3 MG TAB PO SCH (21:42)
[2020-04-26] MEDS: Sodium Chloride 1 GM TAB PO SCH (21:42)
[2020-04-27] MEDS: HYDROcodone/Acetaminophen 10/325 mg Tablet PO PRN ×2 (00:02→17:27)
[2020-04-27] MEDS: Ondansetron PF 4 MG/2 ML Vial IVP PRN (00:50)
[2020-04-27] MEDS: Lorazepam 2 MG/ML VIAL SLOW IVP PRN ×2 (00:54→22:10)
[2020-04-27 06:20] LABS: #Lymphocytes 0.6 thou/uL (1.20-3.40); #Monocytes 0.7 thou/uL (0.11-0.59); #Neutrophils 14.5 thou/uL (1.40-6.50); %Basophils 0.1 % (0.0-1.0); %Eosinophils 0.1 % (0.0-10.0); %Lymphocytes 3.6 % (21.0-51.0); %Monocytes 4.3 % (0.0-10.0); Hemoglobin 13.9 g/dL (12.0-16.0); Mean Corpuscular HGB CONC 30.9 g/dL (32.0-36.0); Mean Corpuscular Hemoglobin 27.8 pg (27.0-31.0); Mean Platelet Volume 7.7 fL (7.4-10.4); Platelet Count 430 thou/uL (130-400); RBC Distribution Width 12.5 % (11.5-14.5); Red Blood Cell (RBC) Count 5.01 mill/uL (4.20-5.40); White Blood Cell (WBC) Count 15.7 thou/uL (4.8-10.8)
[2020-04-27 06:41] LABS: Anion Gap 10 mmol/L (10-20); BUN (Urea Nitrogen) 25 mg/dL (9.8-20.1); Calc. Creatinine Clearance 168 mL/min (70-130); Calcium 8.9 mg/dL (7.8-10.44); Carbon Dioxide 37 mmol/L (22-29); Chloride 91 mmol/L (98-107); Glucose 163 mg/dL (70-105); Potassium 4.9 mmol/L (3.5-5.1); Sodium 133 mmol/L (136-145)
[2020-04-27] MEDS: Morphine 2 MG/ML VIAL SLOW IVP PRN (08:40)
[2020-04-27] MEDS: Dexamethasone 4 MG TAB PO SCH ×2 (09:14→20:41)
[2020-04-27] MEDS: Enoxaparin Sodium 40 MG/0.4 ML SYRINGE SC SCH (09:14)
[2020-04-27] MEDS: Docusate 100 MG CAP PO SCH ×2 (09:14→20:41)
[2020-04-27] MEDS: Pantoprazole 40 MG VIAL IVP SCH (09:15)
[2020-04-27] MEDS: Polyethylene Glycol 3350 17 GM Packet PO SCH (09:18)
[2020-04-27] MEDS: Sodium Chloride 1 GM TAB PO SCH ×2 (09:20→20:41)
[2020-04-27] MEDS: Letrozole 2.5 MG TAB PO SCH (09:22)
[2020-04-27] MEDS ORDERED: Senokot S 8.6-50 MG TAB PO PRN (19:41)
[2020-04-27] MEDS: Melatonin 3 MG TAB PO SCH (20:41)
[2020-04-28 05:34] LABS: Anion Gap 9 mmol/L (10-20); BUN (Urea Nitrogen) 22 mg/dL (9.8-20.1); Calc. Creatinine Clearance 174 mL/min (70-130); Calcium 8.5 mg/dL (7.8-10.44); Carbon Dioxide 36 mmol/L (22-29); Chloride 94 mmol/L (98-107); Glucose 180 mg/dL (70-105); Sodium 134 mmol/L (136-145)
[2020-04-28] MEDS: Polyethylene Glycol 3350 17 GM Packet PO SCH (09:23)
[2020-04-28] MEDS: Enoxaparin Sodium 40 MG/0.4 ML SYRINGE SC SCH (09:23)
[2020-04-28] MEDS: Dexamethasone 4 MG TAB PO SCH ×2 (09:24→20:18)
[2020-04-28] MEDS: Docusate 100 MG CAP PO SCH ×2 (09:24→20:18)
[2020-04-28] MEDS: Letrozole 2.5 MG TAB PO SCH (09:24)
[2020-04-28] MEDS: Sodium Chloride 1 GM TAB PO SCH ×2 (09:24→20:18)
[2020-04-28] MEDS: Pantoprazole 40 MG VIAL IVP SCH (09:24)
[2020-04-28] MEDS: Lorazepam 2 MG/ML VIAL SLOW IVP PRN (12:23)
[2020-04-28] MEDS ORDERED: TRASTUZUMAB ANNS IVPB SCH (13:00)
[2020-04-28] MEDS ORDERED: SODIUM CHLORIDE 0.9% IVPB SCH (13:00)
[2020-04-28] MEDS ORDERED: Acetaminophen 500 MG TAB PO SCH (13:15)
[2020-04-28] MEDS ORDERED: Pertuzumab 840 MG in Sodium Chloride 0.9% 250 ML 250 ML IVPB SCH (13:15)
[2020-04-28] MEDS ORDERED: diphenhydrAMINE 50 MG/ML VIAL IVP SCH (13:15)
[2020-04-28] MEDS: HYDROcodone/Acetaminophen 5/325 mg Tablet PO PRN (14:52)
[2020-04-28] MEDS ORDERED: Mineral Oil ENEMA PR PRN (16:15)
[2020-04-28] MEDS: Melatonin 3 MG TAB PO SCH (20:18)
[2020-04-29 05:10] LABS: Anion Gap 11 mmol/L (10-20); BUN (Urea Nitrogen) 20 mg/dL (9.8-20.1); Calc. Creatinine Clearance 188 mL/min (70-130); Calcium 8.5 mg/dL (7.8-10.44); Carbon Dioxide 36 mmol/L (22-29); Chloride 90 mmol/L (98-107); Glucose 157 mg/dL (70-105); Potassium 5.2 mmol/L (3.5-5.1); Sodium 132 mmol/L (136-145)
[2020-04-29] MEDS: HYDROcodone/Acetaminophen 5/325 mg Tablet PO PRN (08:39)
[2020-04-29] MEDS: Lorazepam 2 MG/ML VIAL SLOW IVP PRN (08:39)
[2020-04-29] MEDS: Enoxaparin Sodium 40 MG/0.4 ML SYRINGE SC SCH (08:40)
[2020-04-29] MEDS: Sodium Chloride 1 GM TAB PO SCH ×2 (08:41→20:22)
[2020-04-29] MEDS: Letrozole 2.5 MG TAB PO SCH (08:41)
[2020-04-29] MEDS: Dexamethasone 4 MG TAB PO SCH ×2 (08:41→20:22)
[2020-04-29] MEDS: Docusate 100 MG CAP PO SCH ×3 (08:41→20:27)
[2020-04-29] MEDS: Polyethylene Glycol 3350 17 GM Packet PO SCH (08:41)
[2020-04-29] MEDS: Pantoprazole 40 MG VIAL IVP SCH (08:41)
[2020-04-29] MEDS: Melatonin 3 MG TAB PO SCH (20:22)
[2020-04-30 06:32] LABS: BUN (Urea Nitrogen) 19 mg/dL (9.8-20.1); Calc. Creatinine Clearance 240 mL/min (70-130); Calcium 8.2 mg/dL (7.8-10.44); Glucose 148 mg/dL (70-105)
[2020-04-30 06:39] LABS: Anion Gap 14 mmol/L (10-20); Carbon Dioxide 33 mmol/L (22-29); Chloride 91 mmol/L (98-107); Potassium 5.2 mmol/L (3.5-5.1); Sodium 133 mmol/L (136-145)
[2020-04-30] MEDS: Enoxaparin Sodium 40 MG/0.4 ML SYRINGE SC SCH (09:25)
[2020-04-30] MEDS: Dexamethasone 4 MG TAB PO SCH ×2 (09:25→20:55)
[2020-04-30] MEDS: Letrozole 2.5 MG TAB PO SCH (09:25)
[2020-04-30] MEDS: Polyethylene Glycol 3350 17 GM Packet PO SCH (09:25)
[2020-04-30] MEDS: Docusate 100 MG CAP PO SCH ×2 (09:25→20:55)
[2020-04-30] MEDS: Sodium Chloride 1 GM TAB PO SCH ×2 (09:25→20:55)
[2020-04-30] MEDS: Melatonin 3 MG TAB PO SCH (20:55)
[2020-04-30] MEDS: Lorazepam 2 MG/ML VIAL SLOW IVP PRN (22:15)
[2020-05-01] MEDS: Morphine 2 MG/ML VIAL SLOW IVP PRN ×2 (01:00→08:48)
[2020-05-01] MEDS: Ondansetron PF 4 MG/2 ML Vial IVP PRN ×2 (01:03→08:55)
[2020-05-01 07:05] LABS: Anion Gap 11 mmol/L (10-20); BUN (Urea Nitrogen) 19 mg/dL (9.8-20.1); Calc. Creatinine Clearance 188 mL/min (70-130); Calcium 8.3 mg/dL (7.8-10.44); Carbon Dioxide 35 mmol/L (22-29); Chloride 90 mmol/L (98-107); Glucose 189 mg/dL (70-105); Potassium 5.3 mmol/L (3.5-5.1); Sodium 131 mmol/L (136-145)
[2020-05-01 08:11] VITALS: BP 140/81; TEMP 97.4
[2020-05-01] MEDS: Letrozole 2.5 MG TAB PO SCH (08:39)
[2020-05-01] MEDS: Dexamethasone 4 MG TAB PO SCH (08:39)
[2020-05-01] MEDS: Sodium Chloride 1 GM TAB PO SCH (08:39)
[2020-05-01] MEDS: Docusate 100 MG CAP PO SCH (08:39)
[2020-05-01] MEDS: Polyethylene Glycol 3350 17 GM Packet PO SCH (08:40)
[2020-05-01] MEDS: Enoxaparin Sodium 40 MG/0.4 ML SYRINGE SC SCH (08:41)
[2020-05-02] MEDS ORDERED: Dexamethasone 4 MG TAB PO SCH (08:00)
== END 2020-05-01 19:30 | DRG 853 ==
LOC: ERS 15:48 → 2NO 17:09 → ONC 04-14 21:20 → CCU 04-16 21:23 → ONC 04-21 16:37
PROVIDERS: ADMIT Family Medicine; ATTEND Family Medicine
PROC: 0HBU3ZX Excision of Left Breast, Percutaneous Approach, Diagnostic (ICD-10-PCS; 2020-04-14)
PROC: 0W9B3ZZ Drainage of Left Pleural Cavity, Percutaneous Approach (ICD-10-PCS; 2020-04-14)
PROC: 0W993ZZ Drainage of Right Pleural Cavity, Percutaneous Approach (ICD-10-PCS; 2020-04-14)
PROC: 0JH60WZ Insertion of Totally Implantable Vascular Access Device into Chest Subcutaneous Tissue and Fascia, Open Approach (ICD-10-PCS; principal; 2020-04-16)
PROC: 0HBU0ZX Excision of Left Breast, Open Approach, Diagnostic (ICD-10-PCS; 2020-04-16)
PROC: 5A09357 Assistance with Respiratory Ventilation, Less than 24 Consecutive Hours, Continuous Positive Airway Pressure (ICD-10-PCS; 2020-04-16)
PROC: 02HV33Z Insertion of Infusion Device into Superior Vena Cava, Percutaneous Approach (ICD-10-PCS; 2020-04-16)
PROC: B518ZZA Fluoroscopy of Superior Vena Cava, Guidance (ICD-10-PCS; 2020-04-16)
PROC: 0W9B30Z Drainage of Left Pleural Cavity with Drainage Device, Percutaneous Approach (ICD-10-PCS; 2020-04-19)
PROC: 3E04305 Introduction of Other Antineoplastic into Central Vein, Percutaneous Approach (ICD-10-PCS; 2020-04-28)
DX: A41.9 Sepsis, unspecified organism (principal); J96.01 Acute respiratory failure with hypoxia; J96.02 Acute respiratory failure with hypercapnia; C78.02 Secondary malignant neoplasm of left lung; J91.0 Malignant pleural effusion; C79.51 Secondary malignant neoplasm of bone; C78.01 Secondary malignant neoplasm of right lung; E22.2 Syndrome of inappropriate secretion of antidiuretic hormone; E87.4 Mixed disorder of acid-base balance; C79.31 Secondary malignant neoplasm of brain; C50.912 Malignant neoplasm of unspecified site of left female breast; Z20.822 Contact with and (suspected) exposure to COVID-19; E03.9 Hypothyroidism, unspecified; F41.9 Anxiety disorder, unspecified; E87.70 Fluid overload, unspecified; F32.9 Major depressive disorder, single episode, unspecified; E83.52 Hypercalcemia; K59.03 Drug induced constipation; T40.605A Adverse effect of unspecified narcotics, initial encounter; E87.5 Hyperkalemia; Z17.0 Estrogen receptor positive status [ER+]; Z88.2 Allergy status to sulfonamides; Z88.1 Allergy status to other antibiotic agents; Z88.0 Allergy status to penicillin; Z91.013 Allergy to seafood; Z80.3 Family history of malignant neoplasm of breast; Z80.52 Family history of malignant neoplasm of bladder; Z79.899 Other long term (current) drug therapy; S21.002A Unspecified open wound of left breast, initial encounter
CPT/HCPCS: 0240U; 36415; 36600; 70450; 70553; 71045; 80048; 80053; 80202; 81001; 82040; 82150; 82306; 82330; 82553; 82803; 82805; 82945; 83605; 83615; 83880; 83935; 83970; 83986; 84100; 84145; 84157; 84300; 84443; 84478; 84484; 85025; 85060; 85379; 85610; 85730; 87040; 87070; 87077; 87086; 87116; 87186; 87205; 87206; 88112; 88305; 88341; 88342; 88360; 89051; 93005; 93306; 94640; 94660; 96365; 96367; 96374; 96375; C1729; C1788; C9113; J0171; J0692; J1642; J1650; J1940; J1956; J2001; J2060; J2250; J2270; J2370; J2405; J2704; J3010; J3370; J3489; J3490; J7030; J7620; J8540; Q0162; S0020; S0028

== ENCOUNTER 2020-06-19 15:18 | Inpatient (IN) | payer BC ==
[~2020-06-19 15:18] MED LIST: Iopamidol-370 76% 500 ML 1 ML ONE
[2020-06-19] MEDS ORDERED: Cefepime 2 GM VIAL ONE (17:10)
[2020-06-19] MEDS ORDERED: Vancomycin 1 GM/200 ML BAG ONE (17:10)
[2020-06-19 17:20] LABS: Hemoglobin 12.1 g/dL (12.0-16.0); Mean Corpuscular Hemoglobin 28.3 pg (27.0-31.0); Mean Corpuscular Volume 88.5 fL (78.0-98.0); Mean Platelet Volume 7.8 fL (7.4-10.4); Platelet Count 238 thou/uL (130-400); RBC Distribution Width 13.8 % (11.5-14.5); Red Blood Cell (RBC) Count 4.28 mill/uL (4.20-5.40)
[2020-06-19 17:27] LABS: Band 20 % (5-11); Lymphocytes 29 % (21-51); MDiff Complete? YES; Metamyelocyte 2 % (0-0); Monocytes 9 % (0-10); Myelocyte 6 % (0-0); Neutrophil 29 % (42-75); Platelet Morphology Comment Appears Adequate; RBC Morphology Normal; Reactive Lymphocytes 5 % (0-10)
[2020-06-19 17:28] LABS: ALT (SGPT) 20 U/L (8-55); AST (SGOT) 12 U/L (5-34); Albumin 2.4 g/dL (3.4-4.8); Alkaline Phosphatase 72 U/L (40-110); Anion Gap 13 mmol/L (10-20); BUN (Urea Nitrogen) 27 mg/dL (9.8-20.1); Bilirubin, Total 0.6 mg/dL (0.2-1.2); CK (CPK) 14 U/L (29-168); Calc. Creatinine Clearance 0 mL/min (70-130); Calcium 7.9 mg/dL (7.8-10.44); Carbon Dioxide 31 mmol/L (23-31); Chloride 101 mmol/L (98-107); Globulin 2.2 g/dL (2.4-3.5); Glucose 136 mg/dL (80-115); Magnesium 1.9 mg/dL (1.6-2.6); Protein, Total 4.6 g/dL (5.8-8.1); Sodium 140 mmol/L (136-145)
[2020-06-19] MEDS ORDERED: diphenhydrAMINE 50 MG/ML VIAL ONE (18:29)
[2020-06-19] MEDS ORDERED: Hydrocortisone Sod Succ/PF 100 mg/2 ml Vial ONE (18:29)
[2020-06-19] MEDS ORDERED: Famotidine/PF 20 mg/2ml Vial ONE (18:29)
[2020-06-19 20:28] LABS: Bacteria/HPF None Seen HPF (None Seen); Bilirubin Negative (Negative); Blood, Urine 3+ (Negative); Clarity Clear (Clear); Glucose, Urine (Dipstick) Normal (Negative); Ketone, Urine Negative (Negative); Leukocyte Negative Leu/uL (Negative); Nitrite Negative (Negative); Protein, Urine (Dipstick) 30 mg/dL (Neg-Trace); RBC/HPF Greater than 50 HPF (0-3); Squamous Epithelial 0-3 HPF (0-3); Urobilinogen Normal mg/dL (Less than 2); WBC/HPF None Seen HPF (0-3); pH, Urine 7.5 (5.0-9.0)
[2020-06-19 20:32] LABS: Specific Gravity, Urine Greater than 1.060 (1.002-1.036)
[2020-06-19 23:07] LABS: SARS-CoV-2 NAA Rapid Test Not Detected (NotDetected)
[2020-06-20] MEDS ORDERED: Ondansetron PF 4 MG/2 ML Vial IVP PRN (00:02)
[2020-06-20] MEDS ORDERED: Ondansetron ODT 4 MG TAB PO PRN ×2 (00:02→07:09)
[2020-06-20 03:06] VITALS: BMI 34.4
[2020-06-20] MEDS: Cefepime 2 GM in Sodium Chloride 0.9% 100 ML IVPB SCH ×2 (05:15→18:02)
[2020-06-20 05:34] LABS: Hemoglobin 11.7 g/dL (12.0-16.0); Mean Corpuscular HGB CONC 31.3 g/dL (32.0-36.0); Mean Corpuscular Hemoglobin 27.9 pg (27.0-31.0); Mean Corpuscular Volume 89.1 fL (78.0-98.0); Mean Platelet Volume 7.4 fL (7.4-10.4); Platelet Count 243 thou/uL (130-400); RBC Distribution Width 13.8 % (11.5-14.5); Red Blood Cell (RBC) Count 4.18 mill/uL (4.20-5.40); White Blood Cell (WBC) Count 1.5 thou/uL (4.8-10.8)
[2020-06-20 05:53] LABS: Anion Gap 10 mmol/L (10-20); BUN (Urea Nitrogen) 25 mg/dL (9.8-20.1); Calc. Creatinine Clearance 212 mL/min (70-130); Calcium 8.2 mg/dL (7.8-10.44); Carbon Dioxide 33 mmol/L (23-31); Chloride 102 mmol/L (98-107); Glucose 145 mg/dL (80-115); Potassium 4.1 mmol/L (3.5-5.1); Sodium 141 mmol/L (136-145)
[2020-06-20] MEDS ORDERED: Senokot S 8.6-50 MG TAB PO PRN (07:09)
[2020-06-20] MEDS ORDERED: Simethicone Chewable 80 MG TAB PO PRN (07:09)
[2020-06-20 08:47] LABS: Band 14 % (5-11); Lymphocytes 28 % (21-51); MDiff Complete? YES; Monocytes 42 % (0-10); Neutrophil 14 % (42-75); Nucleated RBC 2 % (0); Platelet Morphology Comment Appears Adequate; Polychromasia SLIGHT = 2-3 cells (100X) (0-2/hpf); Reactive Lymphocytes 2 % (0-10); Vacuoles SLIGHT
[2020-06-20] MEDS ORDERED: Non-Formulary Item 1 EACH (Insulin Detemir [Levemir] 100 UNIT/ML Vial) SQ SCH (09:00)
[2020-06-20] MEDS ORDERED: Dextrose 50% Abboject 50 ML SYRINGE SLOW IVP PRN (09:18)
[2020-06-20] MEDS ORDERED: Insulin Regular 300 UNITS/3 ML VIAL SC PRN (09:18)
[2020-06-20] MEDS ORDERED: HumaLOG 300 UNITS/3 ML VIAL SC PRN (09:18)
[2020-06-20] MEDS ORDERED: Dextrose 5% in Water 1,000 ML IV PRN (09:18)
[2020-06-20] MEDS: Dexamethasone 4 MG TAB PO SCH (09:19)
[2020-06-20] MEDS: Docusate 100 MG CAP PO SCH ×2 (09:19→20:18)
[2020-06-20] MEDS: Enoxaparin Sodium 40 MG/0.4 ML SYRINGE SC SCH (09:19)
[2020-06-20] MEDS: Lantus 1000 UNITS/10 ML VIAL SC SCH ×2 (09:20→20:17)
[2020-06-20] MEDS: Multivit, Therapeutic 1 TAB PO SCH (09:21)
[2020-06-20] MEDS: Polyethylene Glycol 3350 17 GM Packet PO SCH (09:21)
[2020-06-20] MEDS: Acetaminophen/Codeine 30-300mg Tablet PO PRN (13:15)
[2020-06-20] MEDS ORDERED: hydrALAZINE 20 MG/ML VIAL SLOW IVP PRN (17:23)
[2020-06-20] MEDS: VANCOMYCIN 1.75 GM/350 ML BAG 1.75 GM in Premix Bag 1 BAG IVPB SCH (20:16)
[2020-06-20] MEDS: Melatonin 3 MG TAB PO SCH (20:18)
[2020-06-21] MEDS: Cefepime 2 GM in Sodium Chloride 0.9% 100 ML IVPB SCH ×2 (05:29→16:42)
[2020-06-21] MEDS: VANCOMYCIN 1.75 GM/350 ML BAG 1.75 GM in Premix Bag 1 BAG IVPB SCH ×2 (08:49→20:24)
[2020-06-21] MEDS: Multivit, Therapeutic 1 TAB PO SCH (08:55)
[2020-06-21] MEDS: Dexamethasone 4 MG TAB PO SCH (08:55)
[2020-06-21] MEDS: Lantus 1000 UNITS/10 ML VIAL SC SCH ×2 (08:55→21:06)
[2020-06-21] MEDS: Docusate 100 MG CAP PO SCH ×2 (08:55→20:24)
[2020-06-21] MEDS: Polyethylene Glycol 3350 17 GM Packet PO SCH (08:56)
[2020-06-21 08:58] LABS: Hemoglobin 11.3 g/dL (12.0-16.0); Mean Corpuscular HGB CONC 31.9 g/dL (32.0-36.0); Mean Corpuscular Hemoglobin 27.9 pg (27.0-31.0); Mean Corpuscular Volume 87.2 fL (78.0-98.0); Mean Platelet Volume 7.7 fL (7.4-10.4); Platelet Count 247 thou/uL (130-400); RBC Distribution Width 13.6 % (11.5-14.5); Red Blood Cell (RBC) Count 4.06 mill/uL (4.20-5.40); White Blood Cell (WBC) Count 10.1 thou/uL (4.8-10.8)
[2020-06-21 09:32] LABS: Anion Gap 11 mmol/L (10-20); BUN (Urea Nitrogen) 26 mg/dL (9.8-20.1); Calc. Creatinine Clearance 212 mL/min (70-130); Calcium 8.1 mg/dL (7.8-10.44); Carbon Dioxide 30 mmol/L (23-31); Chloride 99 mmol/L (98-107); Glucose 101 mg/dL (80-115); Potassium 3.9 mmol/L (3.5-5.1); Sodium 136 mmol/L (136-145)
[2020-06-21] MEDS ORDERED: Zolpidem Tartrate 5 MG TAB PO PRN (10:43)
[2020-06-21 10:45] LABS: Band 32 % (5-11); Lymphocytes 13 % (21-51); MDiff Complete? YES; Metamyelocyte 6 % (0-0); Monocytes 19 % (0-10); Myelocyte 2 % (0-0); Neutrophil 24 % (42-75); Platelet Morphology Comment Appears Adequate; Polychromasia SLIGHT = 2-3 cells (100X) (0-2/hpf); Reactive Lymphocytes 4 % (0-10); Toxic Granulation SLIGHT; Vacuoles SLIGHT
[2020-06-21] MEDS ORDERED: Fentanyl 100 MCG/2 ML VIAL ONE (12:40)
[2020-06-21] MEDS ORDERED: Midazolam HCl 2 mg/2 ml Vial ONE (12:40)
[2020-06-21] MEDS ORDERED: Bupivacaine PF 0.5% 30 ML VIAL ONE (12:45)
[2020-06-21] MEDS ORDERED: EPINEPHrine 1 MG/ML AMP ONE (12:45)
[2020-06-21] MEDS ORDERED: Ondansetron HCl/PF 4 MG/2 ML Vial IVP PRN (14:15)
[2020-06-21] MEDS: Acetaminophen/Codeine 30-300mg Tablet PO PRN (16:39)
[2020-06-21] MEDS: Melatonin 3 MG TAB PO SCH (20:24)
[2020-06-22 04:30] LABS: Anion Gap 9 mmol/L (10-20); BUN (Urea Nitrogen) 20 mg/dL (9.8-20.1); Calc. Creatinine Clearance 212 mL/min (70-130); Calcium 7.5 mg/dL (7.8-10.44); Carbon Dioxide 29 mmol/L (23-31); Chloride 98 mmol/L (98-107); Potassium 3.4 mmol/L (3.5-5.1); Sodium 133 mmol/L (136-145)
[2020-06-22 04:34] LABS: Glucose 57 mg/dL (80-115)
[2020-06-22 04:38] LABS: Hemoglobin 10.9 g/dL (12.0-16.0); Lymphocytes 7 % (21-51); MDiff Complete? YES; Mean Corpuscular Hemoglobin 27.9 pg (27.0-31.0); Mean Corpuscular Volume 87.1 fL (78.0-98.0); Mean Platelet Volume 7.8 fL (7.4-10.4); Metamyelocyte 5 % (0-0); Monocytes 3 % (0-10); Neutrophil 84 % (42-75); Platelet Count 239 thou/uL (130-400); Platelet Morphology Comment Appears Adequate; RBC Distribution Width 13.9 % (11.5-14.5); Reactive Lymphocytes 1 % (0-10); Red Blood Cell (RBC) Count 3.92 mill/uL (4.20-5.40); White Blood Cell (WBC) Count 21.2 thou/uL (4.8-10.8)
[2020-06-22] MEDS: Cefepime 2 GM in Sodium Chloride 0.9% 100 ML IVPB SCH ×2 (04:48→19:17)
[2020-06-22 07:16] LABS: Vancomycin, Trough 18.7 ug/mL
[2020-06-22] MEDS: Morphine 4 MG/ML VIAL SLOW IVP PRN (09:00)
[2020-06-22] MEDS: Docusate 100 MG CAP PO SCH ×2 (09:08→23:12)
[2020-06-22] MEDS: Dexamethasone 4 MG TAB PO SCH (09:08)
[2020-06-22] MEDS: Polyethylene Glycol 3350 17 GM Packet PO SCH (09:09)
[2020-06-22] MEDS: Multivit, Therapeutic 1 TAB PO SCH (09:09)
[2020-06-22] MEDS: Enoxaparin Sodium 40 MG/0.4 ML SYRINGE SC SCH (09:10)
[2020-06-22] MEDS: Lantus 1000 UNITS/10 ML VIAL SC SCH ×2 (09:10→23:12)
[2020-06-22] MEDS: VANCOMYCIN 1.75 GM/350 ML BAG 1.75 GM in Premix Bag 1 BAG IVPB SCH (09:15)
[2020-06-22] MEDS ORDERED: Bisacodyl 10 MG SUPP PR PRN (23:00)
[2020-06-22] MEDS: Melatonin 3 MG TAB PO SCH (23:12)
[2020-06-23] MEDS: Cefepime 2 GM in Sodium Chloride 0.9% 100 ML IVPB SCH ×2 (05:58→16:44)
[2020-06-23 08:00] LABS: Anion Gap 11 mmol/L (10-20); BUN (Urea Nitrogen) 11 mg/dL (9.8-20.1); Calc. Creatinine Clearance 212 mL/min (70-130); Calcium 7.3 mg/dL (7.8-10.44); Carbon Dioxide 25 mmol/L (23-31); Chloride 97 mmol/L (98-107); Glucose 116 mg/dL (80-115); Potassium 3.7 mmol/L (3.5-5.1); Sodium 129 mmol/L (136-145)
[2020-06-23 08:21] LABS: Band 30 % (5-11); Lymphocytes 4 % (21-51); MDiff Complete? YES; Mean Corpuscular HGB CONC 32.7 g/dL (32.0-36.0); Mean Corpuscular Hemoglobin 28.1 pg (27.0-31.0); Mean Platelet Volume 7.8 fL (7.4-10.4); Metamyelocyte 4 % (0-0); Monocytes 15 % (0-10); Myelocyte 4 % (0-0); Neutrophil 43 % (42-75); Nucleated RBC 1 % (0); Platelet Count 200 thou/uL (130-400); Platelet Morphology Comment Appears Adequate; Polychromasia SLIGHT = 2-3 cells (100X) (0-2/hpf); RBC Distribution Width 14.3 % (11.5-14.5); Red Blood Cell (RBC) Count 3.91 mill/uL (4.20-5.40); Toxic Granulation SLIGHT; Vacuoles MODERATE; White Blood Cell (WBC) Count 47.5 thou/uL (4.8-10.8)
[2020-06-23] MEDS: Morphine 4 MG/ML VIAL SLOW IVP PRN (08:32)
[2020-06-23] MEDS: Polyethylene Glycol 3350 17 GM Packet PO SCH (10:26)
[2020-06-23] MEDS: Dexamethasone 4 MG TAB PO SCH (10:26)
[2020-06-23] MEDS: Docusate 100 MG CAP PO SCH ×2 (10:26→21:28)
[2020-06-23] MEDS: Multivit, Therapeutic 1 TAB PO SCH (10:26)
[2020-06-23] MEDS: Enoxaparin Sodium 40 MG/0.4 ML SYRINGE SC SCH (10:28)
[2020-06-23] MEDS: Lantus 1000 UNITS/10 ML VIAL SC SCH (10:30)
[2020-06-23] MEDS: Vancomycin 1.5 GRAM/300 ML BAG 1.5 GM in Premix Bag 1 BAG IVPB SCH ×2 (11:14→20:48)
[2020-06-23] MEDS: Melatonin 3 MG TAB PO SCH (21:52)
[2020-06-24 05:02] LABS: Hemoglobin 10.3 g/dL (12.0-16.0); Mean Corpuscular HGB CONC 32.4 g/dL (32.0-36.0); Mean Corpuscular Hemoglobin 27.8 pg (27.0-31.0); Platelet Count 176 thou/uL (130-400); RBC Distribution Width 14.6 % (11.5-14.5); Red Blood Cell (RBC) Count 3.72 mill/uL (4.20-5.40); White Blood Cell (WBC) Count 52.1 thou/uL (4.8-10.8)
[2020-06-24 05:18] LABS: Band 18 % (5-11); Lymphocytes 5 % (21-51); MDiff Complete? YES; Metamyelocyte 1 % (0-0); Monocytes 3 % (0-10); Myelocyte 1 % (0-0); Neutrophil 72 % (42-75); Platelet Morphology Comment Appears Adequate
[2020-06-24 05:20] LABS: Phosphorus 1.5 mg/dL (2.3-4.7)
[2020-06-24] MEDS: Cefepime 2 GM in Sodium Chloride 0.9% 100 ML IVPB SCH ×2 (05:20→17:14)
[2020-06-24 05:29] LABS: Anion Gap 8 mmol/L (10-20); BUN (Urea Nitrogen) 10 mg/dL (9.8-20.1); Calc. Creatinine Clearance 207 mL/min (70-130); Calcium 7.4 mg/dL (7.8-10.44); Carbon Dioxide 28 mmol/L (23-31); Chloride 98 mmol/L (98-107); Glucose 193 mg/dL (80-115); Magnesium 1.7 mg/dL (1.6-2.6); Potassium 3.6 mmol/L (3.5-5.1); Sodium 130 mmol/L (136-145)
[2020-06-24] MEDS ORDERED: Potassium Phosphate 20 MMOL in Sodium Chloride 0.9% 250 ML 250 ML IVPB SCH (05:45)
[2020-06-24] MEDS: Morphine 4 MG/ML VIAL SLOW IVP PRN (08:20)
[2020-06-24] MEDS: Polyethylene Glycol 3350 17 GM Packet PO SCH (08:23)
[2020-06-24] MEDS: Docusate 100 MG CAP PO SCH ×2 (08:24→20:24)
[2020-06-24] MEDS: Enoxaparin Sodium 40 MG/0.4 ML SYRINGE SC SCH (08:24)
[2020-06-24] MEDS: Dexamethasone 4 MG TAB PO SCH (08:25)
[2020-06-24] MEDS: Multivit, Therapeutic 1 TAB PO SCH (08:25)
[2020-06-24 08:37] LABS: Hemoglobin A1c 8.2 % (4.0-6.0)
[2020-06-24 08:51] LABS: Lactic Acid 2.3 mmol/L (0.5-2.2); Vancomycin, Trough 15.7 ug/mL
[2020-06-24] MEDS ORDERED: Albuterol Sulfate HFA (OR ONLY) INH PRN (09:02)
[2020-06-24] MEDS: Vancomycin 1.5 GRAM/300 ML BAG 1.5 GM in Premix Bag 1 BAG IVPB SCH ×2 (09:14→20:25)
[2020-06-24] MEDS ORDERED: NPH, Human Insulin Isophane 300 UNIT/3 ML VIAL SC SCH (12:30)
[2020-06-24 14:21] LABS: Lactic Acid 2.6 mmol/L (0.5-2.2)
[2020-06-24 17:50] LABS: Lactic Acid 3.6 mmol/L (0.5-2.2)
[2020-06-24] MEDS ORDERED: Sodium Chloride 0.9% 500 ML IV SCH (18:00)
[2020-06-24] MEDS: Lantus 1000 UNITS/10 ML VIAL SC SCH (20:24)
[2020-06-25] MEDS: Melatonin 3 MG TAB PO SCH ×2 (00:56→21:54)
[2020-06-25 01:22] LABS: Lactic Acid 2.3 mmol/L (0.5-2.2)
[2020-06-25] MEDS: Cefepime 2 GM in Sodium Chloride 0.9% 100 ML IVPB SCH (04:27)
[2020-06-25 05:59] LABS: Mean Corpuscular HGB CONC 31.3 g/dL (32.0-36.0); Mean Corpuscular Volume 86.4 fL (78.0-98.0); Mean Platelet Volume 7.9 fL (7.4-10.4); Platelet Count 140 thou/uL (130-400); RBC Distribution Width 14.9 % (11.5-14.5); Red Blood Cell (RBC) Count 3.71 mill/uL (4.20-5.40)
[2020-06-25 06:22] LABS: Anion Gap 9 mmol/L (10-20); BUN (Urea Nitrogen) 8 mg/dL (9.8-20.1); Band 27 % (5-11); Calc. Creatinine Clearance 207 mL/min (70-130); Calcium 7.1 mg/dL (7.8-10.44); Carbon Dioxide 26 mmol/L (23-31); Chloride 103 mmol/L (98-107); Glucose 150 mg/dL (80-115); Hypochromia SLIGHT = 6-15 cells (100X) (0-5/hpf); Lymphocytes 12 % (21-51); MDiff Complete? YES; Monocytes 14 % (0-10); Neutrophil 46 % (42-75); Nucleated RBC 3 % (0); Platelet Morphology Comment Appears Adequate; Potassium 3.7 mmol/L (3.5-5.1); Reactive Lymphocytes 1 % (0-10); Sodium 134 mmol/L (136-145)
[2020-06-25] MEDS: Multivit, Therapeutic 1 TAB PO SCH (09:13)
[2020-06-25] MEDS: Dexamethasone 4 MG TAB PO SCH (09:13)
[2020-06-25] MEDS: Enoxaparin Sodium 40 MG/0.4 ML SYRINGE SC SCH (09:13)
[2020-06-25] MEDS: Polyethylene Glycol 3350 17 GM Packet PO SCH (09:14)
[2020-06-25] MEDS: Docusate 100 MG CAP PO SCH ×2 (09:14→21:46)
[2020-06-25] MEDS: Vancomycin 1.5 GRAM/300 ML BAG 1.5 GM in Premix Bag 1 BAG IVPB SCH (09:15)
[2020-06-25] MEDS: Lantus 1000 UNITS/10 ML VIAL SC SCH ×2 (09:16→21:49)
[2020-06-25] MEDS ORDERED: Activase 2 MG VIAL CATH SCH (09:45)
[2020-06-25 12:16] LABS: Lactic Acid 3.5 mmol/L (0.5-2.2)
[2020-06-25] MEDS: hydrOXYzine 25 MG TAB PO PRN (12:29)
[2020-06-25] MEDS ORDERED: Sodium Chloride 0.9% 500 ML IV SCH (12:45)
[2020-06-25 16:19] LABS: Lactic Acid 2.4 mmol/L (0.5-2.2)
[2020-06-25] MEDS: Morphine 4 MG/ML VIAL SLOW IVP PRN (17:51)
[2020-06-25] MEDS: Furosemide 20 MG/2 ML VIAL SLOW IVP SCH (17:54)
[2020-06-25 20:28] LABS: Lactic Acid 3.1 mmol/L (0.5-2.2)
[2020-06-26 00:28] LABS: Lactic Acid 2.8 mmol/L (0.5-2.2)
[2020-06-26] MEDS: Furosemide 20 MG/2 ML VIAL SLOW IVP SCH ×2 (02:51→16:22)
[2020-06-26 05:54] LABS: Hemoglobin 8.6 g/dL (12.0-16.0); Mean Corpuscular HGB CONC 32.7 g/dL (32.0-36.0); Mean Corpuscular Volume 85.6 fL (78.0-98.0); Mean Platelet Volume 7.6 fL (7.4-10.4); Platelet Count 115 thou/uL (130-400); RBC Distribution Width 14.7 % (11.5-14.5); Red Blood Cell (RBC) Count 3.06 mill/uL (4.20-5.40); White Blood Cell (WBC) Count 42.7 thou/uL (4.8-10.8)
[2020-06-26 06:08] LABS: Band 39 % (5-11); Lymphocytes 4 % (21-51); MDiff Complete? YES; Metamyelocyte 2 % (0-0); Monocytes 3 % (0-10); Myelocyte 1 % (0-0); Neutrophil 51 % (42-75); Nucleated RBC 1 % (0); Platelet Morphology Comment Appears Decreased
[2020-06-26 06:11] LABS: Lactic Acid 2.2 mmol/L (0.5-2.2)
[2020-06-26 06:19] LABS: Anion Gap 10 mmol/L (10-20); BUN (Urea Nitrogen) 10 mg/dL (9.8-20.1); Calc. Creatinine Clearance 212 mL/min (70-130); Calcium 8.2 mg/dL (7.8-10.44); Carbon Dioxide 34 mmol/L (23-31); Chloride 99 mmol/L (98-107); Glucose 109 mg/dL (80-115); Potassium 3.2 mmol/L (3.5-5.1); Sodium 140 mmol/L (136-145)
[2020-06-26] MEDS: Multivit, Therapeutic 1 TAB PO SCH (08:54)
[2020-06-26] MEDS: Enoxaparin Sodium 40 MG/0.4 ML SYRINGE SC SCH (08:54)
[2020-06-26] MEDS: Dexamethasone 4 MG TAB PO SCH (08:54)
[2020-06-26] MEDS: Polyethylene Glycol 3350 17 GM Packet PO SCH (08:55)
[2020-06-26] MEDS: Docusate 100 MG CAP PO SCH ×2 (08:55→20:36)
[2020-06-26] MEDS: Lantus 1000 UNITS/10 ML VIAL SC SCH ×2 (08:56→20:36)
[2020-06-26 10:24] LABS: Lactic Acid 2.4 mmol/L (0.5-2.2)
[2020-06-26] MEDS: hydrOXYzine 25 MG TAB PO PRN (11:13)
[2020-06-26] MEDS: Morphine 4 MG/ML VIAL SLOW IVP PRN ×2 (12:12→17:15)
[2020-06-26] MEDS ORDERED: Lorazepam 2 MG/ML VIAL ONE (13:46)
[2020-06-26 13:54] LABS: Actual Bicarbonate (HCO3a) 34.1 mEq/L (22-28); Analyzer IN Cardio OR; Base Excess (BEa) 6.9 mEq/L (-2.0 to +3.0); Calcium, Ionized (arterial) 1.15 mmol/L (1.12-1.30); Carboxyhemoglobin (COHb) 0.2 gm% (0.0-3.0); Hemoglobin (Hb) 9.8 g/dL (12.0-16.0); O2 Tension (PaO2), arterial 75.3 mmHg (> 80.0); Potassium - ABG Lab 3.73 mmol/L (3.70-5.30); pH, Arterial 7.34 (7.35-7.45)
[2020-06-26 13:56] LABS: CO2 Tension 64.8 mmHg (35.0-45.0); Puncture Site RBA
[2020-06-26] MEDS ORDERED: Digoxin 0.5 MG/2 ML AMP SLOW IVP SCH (14:00)
[2020-06-26] MEDS ORDERED: Lorazepam 2 MG/ML VIAL SLOW IVP SCH (14:00)
[2020-06-26] MEDS ORDERED: Lorazepam 2 MG/ML VIAL SLOW IVP PRN (16:35)
[2020-06-26] MEDS: Nystatin Cream 15 GM TUBE TOP SCH ×2 (17:18→20:37)
[2020-06-26] MEDS: Melatonin 3 MG TAB PO SCH (20:36)
[2020-06-27] MEDS: Furosemide 20 MG/2 ML VIAL SLOW IVP SCH ×2 (03:18→15:15)
[2020-06-27 04:14] LABS: Hemoglobin 9.4 g/dL (12.0-16.0); Mean Corpuscular HGB CONC 31.7 g/dL (32.0-36.0); Mean Corpuscular Hemoglobin 27.5 pg (27.0-31.0); Mean Corpuscular Volume 86.9 fL (78.0-98.0); Mean Platelet Volume 8.3 fL (7.4-10.4); Platelet Count 106 thou/uL (130-400); RBC Distribution Width 14.8 % (11.5-14.5); Red Blood Cell (RBC) Count 3.43 mill/uL (4.20-5.40); White Blood Cell (WBC) Count 51.7 thou/uL (4.8-10.8)
[2020-06-27 04:35] LABS: Anion Gap 11 mmol/L (10-20); BUN (Urea Nitrogen) 15 mg/dL (9.8-20.1); Calc. Creatinine Clearance 212 mL/min (70-130); Calcium 9.5 mg/dL (7.8-10.44); Carbon Dioxide 36 mmol/L (23-31); Chloride 96 mmol/L (98-107); Glucose 112 mg/dL (80-115); Potassium 3.5 mmol/L (3.5-5.1); Sodium 139 mmol/L (136-145)
[2020-06-27 04:36] LABS: Band 22 % (5-11); Hypochromia SLIGHT = 6-15 cells (100X) (0-5/hpf); Lymphocytes 8 % (21-51); MDiff Complete? YES; Metamyelocyte 2 % (0-0); Monocytes 2 % (0-10); Neutrophil 66 % (42-75); Platelet Morphology Comment Appears Decreased
[2020-06-27] MEDS: Docusate 100 MG CAP PO SCH ×2 (10:29→20:12)
[2020-06-27] MEDS: Dexamethasone 4 MG TAB PO SCH (10:29)
[2020-06-27] MEDS: Enoxaparin Sodium 40 MG/0.4 ML SYRINGE SC SCH (10:30)
[2020-06-27] MEDS: Multivit, Therapeutic 1 TAB PO SCH (10:30)
[2020-06-27] MEDS: Polyethylene Glycol 3350 17 GM Packet PO SCH (10:31)
[2020-06-27] MEDS: Nystatin Cream 15 GM TUBE TOP SCH ×3 (10:31→20:13)
[2020-06-27] MEDS: Lantus 1000 UNITS/10 ML VIAL SC SCH ×2 (11:00→20:15)
[2020-06-27] MEDS: Micafungin 100 MG in Sodium Chloride 0.9% 100 ML IVPB SCH (13:03)
[2020-06-27] MEDS: Meropenem 2 GM in Sodium Chloride 0.9% 100 ML IVPB SCH ×2 (15:15→22:17)
[2020-06-27] MEDS: Morphine 4 MG/ML VIAL SLOW IVP PRN (16:06)
[2020-06-27] MEDS: Melatonin 3 MG TAB PO SCH (20:12)
[2020-06-27] MEDS: hydrOXYzine 25 MG TAB PO PRN (20:44)
[2020-06-28] MEDS: Furosemide 20 MG/2 ML VIAL SLOW IVP SCH ×2 (02:16→14:59)
[2020-06-28] MEDS: Meropenem 2 GM in Sodium Chloride 0.9% 100 ML IVPB SCH ×3 (06:16→21:29)
[2020-06-28] MEDS: Morphine 4 MG/ML VIAL SLOW IVP PRN (09:40)
[2020-06-28] MEDS: Multivit, Therapeutic 1 TAB PO SCH (09:43)
[2020-06-28] MEDS: Polyethylene Glycol 3350 17 GM Packet PO SCH (09:44)
[2020-06-28] MEDS: Enoxaparin Sodium 40 MG/0.4 ML SYRINGE SC SCH (09:44)
[2020-06-28] MEDS: Nystatin Cream 15 GM TUBE TOP SCH ×3 (09:44→21:29)
[2020-06-28] MEDS: Docusate 100 MG CAP PO SCH ×2 (09:44→21:28)
[2020-06-28] MEDS: Lantus 1000 UNITS/10 ML VIAL SC SCH ×2 (09:52→21:31)
[2020-06-28] MEDS: Dexamethasone 4 MG TAB PO SCH (11:15)
[2020-06-28] MEDS: Micafungin 100 MG in Sodium Chloride 0.9% 100 ML IVPB SCH (12:39)
[2020-06-28] MEDS: Acetaminophen 325 MG TAB PO PRN (18:31)
[2020-06-28] MEDS: Melatonin 3 MG TAB PO SCH (21:27)
[2020-06-29] MEDS: Furosemide 20 MG/2 ML VIAL SLOW IVP SCH ×2 (02:13→14:03)
[2020-06-29] MEDS: Meropenem 2 GM in Sodium Chloride 0.9% 100 ML IVPB SCH ×3 (05:31→21:35)
[2020-06-29] MEDS: Docusate 100 MG CAP PO SCH ×2 (08:38→21:35)
[2020-06-29] MEDS: Multivit, Therapeutic 1 TAB PO SCH (08:38)
[2020-06-29] MEDS: Nystatin Cream 15 GM TUBE TOP SCH ×3 (08:38→21:35)
[2020-06-29] MEDS: Enoxaparin Sodium 40 MG/0.4 ML SYRINGE SC SCH (08:39)
[2020-06-29] MEDS: Polyethylene Glycol 3350 17 GM Packet PO SCH (08:39)
[2020-06-29] MEDS: Lantus 1000 UNITS/10 ML VIAL SC SCH ×2 (08:40→21:37)
[2020-06-29] MEDS: Morphine 4 MG/ML VIAL SLOW IVP PRN (08:45)
[2020-06-29] MEDS: Melatonin 3 MG TAB PO SCH (21:35)
[2020-06-29] MEDS ORDERED: Sodium Chloride 0.65% Nasal 44 ML BOT EA NARE PRN ×2 (21:37→23:01)
[2020-06-30] MEDS: Furosemide 20 MG/2 ML VIAL SLOW IVP SCH ×2 (02:39→15:48)
[2020-06-30] MEDS: Meropenem 2 GM in Sodium Chloride 0.9% 100 ML IVPB SCH ×2 (06:12→18:12)
[2020-06-30 08:17] VITALS: BP 109/67; TEMP 97.6
[2020-06-30] MEDS: Morphine 4 MG/ML VIAL SLOW IVP PRN (08:48)
[2020-06-30] MEDS: Docusate 100 MG CAP PO SCH (10:30)
[2020-06-30] MEDS: Multivit, Therapeutic 1 TAB PO SCH (10:31)
[2020-06-30] MEDS: Enoxaparin Sodium 40 MG/0.4 ML SYRINGE SC SCH (10:31)
[2020-06-30] MEDS: Polyethylene Glycol 3350 17 GM Packet PO SCH (10:34)
[2020-06-30] MEDS: Nystatin Cream 15 GM TUBE TOP SCH (10:37)
[2020-06-30] MEDS: Lantus 1000 UNITS/10 ML VIAL SC SCH (13:19)
[2020-06-30] MEDS: Acetaminophen 325 MG TAB PO PRN (17:48)
== END 2020-06-30 19:10 | DRG 180 ==
LOC: ERS 15:18 → ONC 22:08 → IMCU/EMU 06-26 14:20 → ONC 06-28 17:59
PROVIDERS: ADMIT Student in an Organized Health Care Education/Training Program; ATTEND Internal Medicine
PROC: 0W9930Z Drainage of Right Pleural Cavity with Drainage Device, Percutaneous Approach (ICD-10-PCS; principal; 2020-06-21)
DX: C78.01 Secondary malignant neoplasm of right lung (principal); J96.01 Acute respiratory failure with hypoxia; J18.9 Pneumonia, unspecified organism; J91.0 Malignant pleural effusion; E44.0 Moderate protein-calorie malnutrition; E87.2 Acidosis; C79.51 Secondary malignant neoplasm of bone; C78.02 Secondary malignant neoplasm of left lung; C50.912 Malignant neoplasm of unspecified site of left female breast; Z20.822 Contact with and (suspected) exposure to COVID-19; Z51.5 Encounter for palliative care; E11.65 Type 2 diabetes mellitus with hyperglycemia; N18.9 Chronic kidney disease, unspecified; E03.9 Hypothyroidism, unspecified; F41.9 Anxiety disorder, unspecified; D70.9 Neutropenia, unspecified; G47.00 Insomnia, unspecified; T45.8X5A Adverse effect of other primarily systemic and hematological agents, initial encounter; T38.0X5A Adverse effect of glucocorticoids and synthetic analogues, initial encounter; E11.22 Type 2 diabetes mellitus with diabetic chronic kidney disease; I27.20 Pulmonary hypertension, unspecified; D72.829 Elevated white blood cell count, unspecified; E87.6 Hypokalemia; E83.39 Other disorders of phosphorus metabolism; Z17.0 Estrogen receptor positive status [ER+]; Z88.1 Allergy status to other antibiotic agents; Z88.0 Allergy status to penicillin; Z88.2 Allergy status to sulfonamides; Z88.5 Allergy status to narcotic agent; Z88.8 Allergy status to other drugs, medicaments and biological substances; Z98.890 Other specified postprocedural states; Z79.4 Long term (current) use of insulin; Z79.899 Other long term (current) drug therapy; Z68.35 Body mass index [BMI] 35.0-35.9, adult
CPT/HCPCS: 0240U; 36415; 36416; 36600; 51701; 71045; 71275; 80048; 80053; 80202; 81003; 81015; 82308; 82550; 82805; 83036; 83605; 83735; 83880; 84100; 84145; 84484; 85025; 87040; 87086; 87149; 93005; 93010; 94660; 96365; 96366; 96367; 96375; J0171; J0692; J1200; J1650; J1720; J1815; J1940; J2185; J2248; J2250; J2270; J2997; J3010; J3370; J3490; J7050; J8540; P9045; Q9967; S0020; S0028

== ENCOUNTER 2020-08-03 14:23 | Inpatient (IN) | payer BC ==
[2020-08-03 15:12] LABS: Hemoglobin 9.8 g/dL (12.0-16.0); Mean Corpuscular HGB CONC 31.6 g/dL (32.0-36.0); Mean Corpuscular Hemoglobin 28.3 pg (27.0-31.0); Mean Corpuscular Volume 89.4 fL (78.0-98.0); Mean Platelet Volume 5.9 fL (7.4-10.4); Platelet Count 618 thou/uL (130-400); RBC Distribution Width 14.8 % (11.5-14.5); Red Blood Cell (RBC) Count 3.48 mill/uL (4.20-5.40); White Blood Cell (WBC) Count 16.4 thou/uL (4.8-10.8)
[2020-08-03 15:30] LABS: Band 14 % (5-11); Lymphocytes 15 % (21-51); MDiff Complete? YES; Monocytes 7 % (0-10); Myelocyte 1 % (0-0); Neutrophil 63 % (42-75); Platelet Morphology Comment Appears Increased; Polychromasia SLIGHT = 2-3 cells (100X) (0-2/hpf); Vacuoles SLIGHT
[2020-08-03 15:37] LABS: ALT (SGPT) 17 U/L (8-55); AST (SGOT) 31 U/L (5-34); Albumin 2.1 g/dL (3.4-4.8); Alkaline Phosphatase 157 U/L (40-110); Anion Gap 13 mmol/L (10-20); BUN (Urea Nitrogen) 16 mg/dL (9.8-20.1); Bilirubin, Total 0.3 mg/dL (0.2-1.2); Calc. Creatinine Clearance 0 mL/min (70-130); Calcium 8.2 mg/dL (7.8-10.44); Carbon Dioxide 29 mmol/L (23-31); Chloride 93 mmol/L (98-107); Globulin 3.9 g/dL (2.4-3.5); Glucose 222 mg/dL (80-115); Potassium 3.8 mmol/L (3.5-5.1); Sodium 131 mmol/L (136-145)
[2020-08-03] MEDS ORDERED: cefTRIAXone\\ROCEPHIN 1 GM VIAL ONE (17:11)
[2020-08-03] MEDS ORDERED: Famotidine/PF 20 mg/2ml Vial ONE (17:11)
[2020-08-03] MEDS ORDERED: methylPREDNISolone Sod Succ/PF 125 MG/2 ML VIAL ONE (17:11)
[2020-08-03] MEDS ORDERED: diphenhydrAMINE 50 MG/ML VIAL ONE (17:11)
[2020-08-03] MEDS ORDERED: Azithromycin 500 MG VIAL ONE (18:31)
[2020-08-03] MEDS ORDERED: Succinylcholine 200 MG/10 ml SYRINGE FS ONE (19:10)
[2020-08-03] MEDS ORDERED: Ondansetron ODT 4 MG TAB SL PRN (19:30)
[2020-08-03] MEDS ORDERED: Ondansetron PF 4 MG/2 ML Vial IVP PRN (19:30)
[2020-08-03] MEDS ORDERED: Acetaminophen 325 MG TAB PO PRN (19:30)
[2020-08-03] MEDS ORDERED: Fentanyl CADD 100 ML ONE (19:37)
[2020-08-03 19:42] LABS: SARS-CoV-2 NAA Rapid Test Not Detected (NotDetected)
[2020-08-03] MEDS: Fentanyl CADD 100 ML IV SCH (20:00)
[2020-08-03 20:27] LABS: Base Excess (BEa) -8.7 mEq/L (-2.0 to +3.0); CO2 Tension 42.1 mmHg (35.0-45.0); Calcium, Ionized (arterial) 1.06 mmol/L (1.12-1.30); Carboxyhemoglobin (COHb) 0.4 gm% (0.0-3.0); Hemoglobin (Hb) 10.7 g/dL (12.0-16.0); O2 Tension (PaO2), arterial 72.8 mmHg (> 80.0); Potassium - ABG Lab 4.17 mmol/L (3.70-5.30)
[2020-08-03 20:30] LABS: ALV-art Gradient 228.575 mmHg (0-20); Puncture Site LRA; pH, Arterial 7.25 (7.35-7.45)
[2020-08-03 20:59] LABS: Anion Gap 14 mmol/L (10-20); BUN (Urea Nitrogen) 16 mg/dL (9.8-20.1); Calc. Creatinine Clearance 0 mL/min (70-130); Carbon Dioxide 20 mmol/L (23-31); Chloride 102 mmol/L (98-107); Glucose 254 mg/dL (80-115); Magnesium 1.7 mg/dL (1.6-2.6); Potassium 4.1 mmol/L (3.5-5.1); Sodium 132 mmol/L (136-145)
[2020-08-03] MEDS ORDERED: Propofol BOLUS 1,000 MG/100 ML VIAL IV PRN (21:00)
[2020-08-03] MEDS ORDERED: Fentanyl BOLUS 250 ML IVPB PRN (21:00)
[2020-08-03] MEDS ORDERED: Ventilator Sedation Protocol 1 EACH FS SCH (21:00)
[2020-08-03] MEDS ORDERED: DISCONTINUE PREVIOUS NARCOTIC PAIN MEDICATIONS AND BENZODIAZEPINES FS SCH (21:00)
[2020-08-03] MEDS ORDERED: Morphine 2 MG/ML VIAL SLOW IVP PRN (21:00)
[2020-08-03 21:02] LABS: CKMB 7.3 ng/mL (0-6.6)
[2020-08-03] MEDS ORDERED: Insulin Regular 300 UNITS/3 ML VIAL SC PRN (21:06)
[2020-08-03] MEDS ORDERED: Dextrose 5% in Water 1,000 ML IV PRN (21:06)
[2020-08-03] MEDS ORDERED: Electrolyte Replacement Protocol 1 EACH FS SCH (21:15)
[2020-08-03] MEDS ORDERED: Magnesium 2 GM/50 ML 2 GM in Premix Bag 1 BAG IVPB SCH (21:15)
[2020-08-03] MEDS ORDERED: Dextrose 5 % And 0.9 % NaCl 1,000 ML IV SCH (21:15)
[2020-08-03] MEDS: Sodium Chloride 0.9% 1,000 ML IV SCH (21:37)
[2020-08-03] MEDS: Cefepime 2 GM in Sodium Chloride 0.9% 100 ML IVPB SCH (21:40)
[2020-08-03] MEDS: Insulin Regular 300 UNITS/3 ML VIAL SC PRN (22:58)
[2020-08-03 23:32] LABS: Anion Gap 20 mmol/L (10-20); BUN (Urea Nitrogen) 19 mg/dL (9.8-20.1); Calc. Creatinine Clearance 124 mL/min (70-130); Calcium 7.3 mg/dL (7.8-10.44); Carbon Dioxide 18 mmol/L (23-31); Chloride 102 mmol/L (98-107); Glucose 305 mg/dL (80-115); Potassium 4.3 mmol/L (3.5-5.1); Sodium 136 mmol/L (136-145)
[2020-08-03] MEDS: Lorazepam 2 MG/ML VIAL SLOW IVP PRN (23:37)
[2020-08-03 23:41] LABS: Troponin I 3.558 ng/mL (< 0.028)
[2020-08-03] MEDS ORDERED: Enoxaparin Sodium 30 MG/0.3 ML SYRINGE SC SCH (23:45)
[2020-08-03] MEDS ORDERED: Enoxaparin Sodium 100 MG/ML SYRINGE SC SCH (23:59)
[2020-08-03] MEDS ORDERED: Aspirin 325 mg Enteric Coated Tablet PO SCH (23:59)
[2020-08-04] MEDS: Norepinephrine 8 MG/0.9% NS 250 ML IVPB SCH ×3 (00:05→19:32)
[2020-08-04] MEDS ORDERED: Aspirin 325 MG TAB PO SCH (00:15)
[2020-08-04] MEDS ORDERED: Sodium Chloride 0.9% 500 ML IV SCH ×2 (00:30→05:45)
[2020-08-04] MEDS: Insulin Regular 300 UNITS/3 ML VIAL SC PRN ×3 (01:12→09:36)
[2020-08-04] MEDS ORDERED: Electrolyte Replacement Protocol FS PRN (02:15)
[2020-08-04] MEDS ORDERED: Sodium Chloride 0.9% 1,000 ML IV SCH (02:45)
[2020-08-04 05:10] LABS: Hemoglobin 9.8 g/dL (12.0-16.0); Mean Corpuscular HGB CONC 32.1 g/dL (32.0-36.0); Mean Corpuscular Hemoglobin 29.4 pg (27.0-31.0); Mean Corpuscular Volume 91.5 fL (78.0-98.0); Mean Platelet Volume 6.4 fL (7.4-10.4); Platelet Count 716 thou/uL (130-400); RBC Distribution Width 15.1 % (11.5-14.5); Red Blood Cell (RBC) Count 3.34 mill/uL (4.20-5.40); White Blood Cell (WBC) Count 55.3 thou/uL (4.8-10.8)
[2020-08-04 05:20] LABS: Band 29 % (5-11); Eosinophils 1 % (0-10); Lymphocytes 6 % (21-51); MDiff Complete? YES; Metamyelocyte 4 % (0-0); Monocytes 1 % (0-10); Myelocyte 1 % (0-0); Neutrophil 58 % (42-75); Nucleated RBC 1 % (0); Platelet Morphology Comment Appears Increased
[2020-08-04 05:26] LABS: Critical Call Chem Troponin I RESULT DECREASING
[2020-08-04] MEDS: Vancomycin 1.5 GRAM/300 ML BAG 1.5 GM in Premix Bag 1 BAG IVPB SCH ×2 (05:38→17:24)
[2020-08-04] MEDS: Sodium Chloride 0.9% 1,000 ML IV SCH ×2 (05:43→12:59)
[2020-08-04 05:45] LABS: CKMB 7.7 ng/mL (0-6.6)
[2020-08-04 05:50] LABS: Anion Gap 16 mmol/L (10-20); BUN (Urea Nitrogen) 21 mg/dL (9.8-20.1); Calc. Creatinine Clearance 137 mL/min (70-130); Calcium 7.2 mg/dL (7.8-10.44); Carbon Dioxide 20 mmol/L (23-31); Chloride 103 mmol/L (98-107); Glucose 221 mg/dL (80-115); Potassium 3.7 mmol/L (3.5-5.1); Sodium 135 mmol/L (136-145)
[2020-08-04 08:05] LABS: Actual Bicarbonate (HCO3a) 17.6 mEq/L (22-28); Base Excess (BEa) -6.1 mEq/L (-2.0 to +3.0); CO2 Tension 28.7 mmHg (35.0-45.0); Calcium, Ionized (arterial) 0.94 mmol/L (1.12-1.30); Carboxyhemoglobin (COHb) 0.3 gm% (0.0-3.0); Hemoglobin (Hb) 10.2 g/dL (12.0-16.0); O2 Tension (PaO2), arterial 68.4 mmHg (> 80.0); Potassium - ABG Lab 3.84 mmol/L (3.70-5.30); pH, Arterial 7.41 (7.35-7.45)
[2020-08-04 08:07] LABS: ALV-art Gradient 180.925 mmHg (0-20); Puncture Site RBA
[2020-08-04 08:28] VITALS: BMI 37.2
[2020-08-04 09:20] LABS: Lactic Acid 3.3 mmol/L (0.5-2.2)
[2020-08-04] MEDS: Cefepime 2 GM in Sodium Chloride 0.9% 100 ML IVPB SCH ×2 (09:33→21:14)
[2020-08-04 11:57] LABS: ALT (SGPT) 33 U/L (8-55); AST (SGOT) 62 U/L (5-34); Albumin 1.8 g/dL (3.4-4.8); Alkaline Phosphatase 209 U/L (40-110); Anion Gap 17 mmol/L (10-20); BUN (Urea Nitrogen) 24 mg/dL (9.8-20.1); Bilirubin, Total 0.3 mg/dL (0.2-1.2); Calc. Creatinine Clearance 139 mL/min (70-130); Calcium 6.9 mg/dL (7.8-10.44); Carbon Dioxide 19 mmol/L (23-31); Chloride 105 mmol/L (98-107); Globulin 3.3 g/dL (2.4-3.5); Glucose 178 mg/dL (80-115); Potassium 3.6 mmol/L (3.5-5.1); Protein, Total 5.1 g/dL (5.8-8.1); Sodium 137 mmol/L (136-145)
[2020-08-04 11:58] LABS: Hemoglobin 9.6 g/dL (12.0-16.0); Mean Corpuscular HGB CONC 31.7 g/dL (32.0-36.0); Mean Corpuscular Hemoglobin 28.6 pg (27.0-31.0); Mean Platelet Volume 6.5 fL (7.4-10.4); Platelet Count 539 thou/uL (130-400); RBC Distribution Width 15.1 % (11.5-14.5); Red Blood Cell (RBC) Count 3.35 mill/uL (4.20-5.40)
[2020-08-04 12:12] LABS: Band 8 % (5-11); Lymphocytes 8 % (21-51); MDiff Complete? YES; Metamyelocyte 1 % (0-0); Monocytes 4 % (0-10); Neutrophil 79 % (42-75); Nucleated RBC 1 % (0); Platelet Morphology Comment Appears Increased; White Blood Cell (WBC) Count 44.5 thou/uL (4.8-10.8)
[2020-08-04 13:56] LABS: Legionella Urinary Ag Negative (Negative); Strep pneumo Urine Ag NEGATIVE (NEGATIVE)
[2020-08-04] MEDS: metroNIDAZOLE 500 MG in Premix Bag 1 BAG IVPB SCH ×2 (14:40→19:31)
[2020-08-04 15:23] LABS: RBC Count-Automated (BF) 219 /cu.mm; WBC/Nucleated-Auto (BF) 408 uL
[2020-08-04 15:25] LABS: BF Color Yellow; Body Fluid Source Pleural Fluid; Clarity Hazy (Clear)
[2020-08-04 15:34] LABS: Pleural Fluid, Protein 1.7 g/dL
[2020-08-04 15:43] LABS: BF Segmented Neutrophils 51 %; Cell Count Non Hematic 16 %; Lymphocytes 33 %
[2020-08-04] MEDS: Propofol 1,000 MG/100 ML VIAL IV PRN (17:24)
[2020-08-04] MEDS: Lorazepam 2 MG/ML VIAL SLOW IVP PRN (17:24)
[2020-08-04] MEDS ORDERED: Fentanyl CADD 100 ML ONE (19:14)
[2020-08-04] MEDS: Fentanyl CADD 100 ML IV SCH (19:28)
[2020-08-04] MEDS ORDERED: Prevnar 13-Val Conj/PF 0.5 ML SYRINGE IM ONE (21:00)
[2020-08-05] MEDS: metroNIDAZOLE 500 MG in Premix Bag 1 BAG IVPB SCH ×4 (00:11→18:47)
[2020-08-05] MEDS: Sodium Chloride 0.9% 1,000 ML IV SCH ×3 (00:33→22:29)
[2020-08-05 04:40] LABS: Anion Gap 16 mmol/L (10-20); BUN (Urea Nitrogen) 25 mg/dL (9.8-20.1); Calc. Creatinine Clearance 144 mL/min (70-130); Carbon Dioxide 17 mmol/L (23-31); Chloride 108 mmol/L (98-107); Glucose 110 mg/dL (80-115); Sodium 138 mmol/L (136-145)
[2020-08-05 04:40] LABS: Band 41 % (5-11); Hemoglobin 7.6 g/dL (12.0-16.0); Lymphocytes 5 % (21-51); MDiff Complete? YES; Mean Corpuscular HGB CONC 31.8 g/dL (32.0-36.0); Mean Corpuscular Hemoglobin 28.4 pg (27.0-31.0); Mean Corpuscular Volume 89.3 fL (78.0-98.0); Mean Platelet Volume 6.4 fL (7.4-10.4); Metamyelocyte 1 % (0-0); Monocytes 3 % (0-10); Neutrophil 50 % (42-75); Platelet Count 377 thou/uL (130-400); Platelet Morphology Comment Appears Adequate; RBC Distribution Width 15.3 % (11.5-14.5); Red Blood Cell (RBC) Count 2.68 mill/uL (4.20-5.40); White Blood Cell (WBC) Count 24.3 thou/uL (4.8-10.8)
[2020-08-05] MEDS ORDERED: Potassium Chloride 40 MEQ in Premix Bag 1 BAG IVPB SCH (05:45)
[2020-08-05] MEDS: Vancomycin 1.5 GRAM/300 ML BAG 1.5 GM in Premix Bag 1 BAG IVPB SCH ×2 (06:04→17:01)
[2020-08-05] MEDS: Propofol 1,000 MG/100 ML VIAL IV PRN ×2 (06:05→15:18)
[2020-08-05] MEDS: Cefepime 2 GM in Sodium Chloride 0.9% 100 ML IVPB SCH ×2 (07:44→21:15)
[2020-08-05] MEDS ORDERED: Fentanyl CADD 100 ML ONE (12:03)
[2020-08-05] MEDS: Dextrose 50% Abboject 50 ML SYRINGE SLOW IVP PRN (20:28)
[2020-08-06] MEDS: metroNIDAZOLE 500 MG in Premix Bag 1 BAG IVPB SCH ×3 (00:59→13:00)
[2020-08-06 04:07] LABS: Hemoglobin 6.8 g/dL (12.0-16.0); Mean Corpuscular HGB CONC 32.3 g/dL (32.0-36.0); Mean Corpuscular Hemoglobin 28.9 pg (27.0-31.0); Mean Corpuscular Volume 89.5 fL (78.0-98.0); Mean Platelet Volume 6.4 fL (7.4-10.4); Platelet Count 315 thou/uL (130-400); RBC Distribution Width 15.2 % (11.5-14.5); Red Blood Cell (RBC) Count 2.36 mill/uL (4.20-5.40); White Blood Cell (WBC) Count 17.7 thou/uL (4.8-10.8)
[2020-08-06 04:16] LABS: INR-International Normal Ratio 1.2; PTT 37.7 sec (22.9-36.1); Prothrombin Time 15.4 sec (12.0-14.7)
[2020-08-06 04:27] LABS: Anion Gap 13 mmol/L (10-20); BUN (Urea Nitrogen) 26 mg/dL (9.8-20.1); Calc. Creatinine Clearance 165 mL/min (70-130); Carbon Dioxide 18 mmol/L (23-31); Chloride 112 mmol/L (98-107); Glucose 68 mg/dL (80-115); Sodium 140 mmol/L (136-145)
[2020-08-06 04:33] LABS: Band 4 % (5-11); Eosinophils 1 % (0-10); Lymphocytes 4 % (21-51); MDiff Complete? YES; Metamyelocyte 5 % (0-0); Monocytes 3 % (0-10); Neutrophil 83 % (42-75); Nucleated RBC 1 % (0); Platelet Morphology Comment Appears Adequate
[2020-08-06 04:37] LABS: Potassium 2.7 mmol/L (3.5-5.1)
[2020-08-06] MEDS: Dextrose 50% Abboject 50 ML SYRINGE SLOW IVP PRN (05:22)
[2020-08-06] MEDS: Potassium Chloride 40 MEQ in Premix Bag 1 BAG IVPB SCH ×2 (05:22→09:13)
[2020-08-06] MEDS: Sodium Chloride 0.9% 1,000 ML IV SCH (05:23)
[2020-08-06] MEDS: Vancomycin 1.5 GRAM/300 ML BAG 1.5 GM in Premix Bag 1 BAG IVPB SCH (05:28)
[2020-08-06 08:31] LABS: Actual Bicarbonate (HCO3a) 16.5 mEq/L (22-28); Base Excess (BEa) -5.9 mEq/L (-2.0 to +3.0); Calcium, Ionized (arterial) 1.11 mmol/L (1.12-1.30); O2 Tension (PaO2), arterial 113.1 mmHg (> 80.0); Potassium - ABG Lab 3.12 mmol/L (3.70-5.30); pH, Arterial 7.43 (7.35-7.45)
[2020-08-06 08:35] LABS: CO2 Tension 25.4 mmHg (35.0-45.0); Puncture Site RBA
[2020-08-06] MEDS: Cefepime 2 GM in Sodium Chloride 0.9% 100 ML IVPB SCH (09:07)
[2020-08-06] MEDS ORDERED: Fentanyl CADD 100 ML ONE (09:38)
[2020-08-06] MEDS: Fentanyl CADD 100 ML IV SCH (09:41)
[2020-08-06] MEDS ORDERED: DC Sedation Protocol FS ONE (11:25)
[2020-08-06] MEDS: Morphine 4 MG/ML VIAL SLOW IVP PRN ×3 (12:25→18:22)
[2020-08-06] MEDS ORDERED: Lidocaine 1% (PF) 30 ML VIAL ONE (12:40)
[2020-08-06 16:36] LABS: Potassium 3.9 mmol/L (3.5-5.1)
[2020-08-06 17:18] VITALS: BP 97/73; TEMP 97.5
[2020-08-07] MEDS ORDERED: Lidocaine 4% Topical Sol 50 ML BOT TOP SCH (09:00)
[2020-08-07] MEDS ORDERED: Pantoprazole 40 MG GRANULES PACKET PER TUBE SCH (09:00)
[2020-08-08 21:36] LABS: Mycoplasma pneumoniae IgG AB 882 U/mL (0-99); Mycoplasma pneumoniae IgM AB Less than 770 U/mL (0-769)
[2020-08-09 14:14] LABS: QuantiFERON-TB Gold Plus Indeterminate (Negative)
== END 2020-08-06 19:18 | disposition hospice, inpatient (51) | DRG 853 ==
LOC: ERS 14:23 → IMCU/EMU 17:25 → CCU 19:21 → ONC 08-06 16:53
PROVIDERS: ADMIT Internal Medicine; ATTEND Internal Medicine
PROC: 5A1945Z Respiratory Ventilation, 24-96 Consecutive Hours (ICD-10-PCS; principal; 2020-08-03)
PROC: 0BH17EZ Insertion of Endotracheal Airway into Trachea, Via Natural or Artificial Opening (ICD-10-PCS; 2020-08-03)
PROC: 3E033XZ Introduction of Vasopressor into Peripheral Vein, Percutaneous Approach (ICD-10-PCS; 2020-08-03)
PROC: 0JB60ZZ Excision of Chest Subcutaneous Tissue and Fascia, Open Approach (ICD-10-PCS; 2020-08-05)
DX: A41.9 Sepsis, unspecified organism (principal); J96.01 Acute respiratory failure with hypoxia; I21.A1 Myocardial infarction type 2; J18.9 Pneumonia, unspecified organism; G93.41 Metabolic encephalopathy; J86.9 Pyothorax without fistula; T85.618A Breakdown (mechanical) of other specified internal prosthetic devices, implants and grafts, initial encounter; J91.0 Malignant pleural effusion; C78.02 Secondary malignant neoplasm of left lung; C78.01 Secondary malignant neoplasm of right lung; I96 Gangrene, not elsewhere classified; C79.51 Secondary malignant neoplasm of bone; C78.2 Secondary malignant neoplasm of pleura; C79.31 Secondary malignant neoplasm of brain; R65.20 Severe sepsis without septic shock; Z20.822 Contact with and (suspected) exposure to COVID-19; Z66 Do not resuscitate; Z51.5 Encounter for palliative care; E87.6 Hypokalemia; E03.9 Hypothyroidism, unspecified; F41.9 Anxiety disorder, unspecified; C50.919 Malignant neoplasm of unspecified site of unspecified female breast; D72.823 Leukemoid reaction; E66.01 Morbid (severe) obesity due to excess calories; S31.109A Unspecified open wound of abdominal wall, unspecified quadrant without penetration into peritoneal cavity, initial encounter; S21.002A Unspecified open wound of left breast, initial encounter; Y83.1 Surgical operation with implant of artificial internal device as the cause of abnormal reaction of the patient, or of later complication, without mention of misadventure at the time of the procedure; Z78.1 Physical restraint status; Z90.89 Acquired absence of other organs; Z88.2 Allergy status to sulfonamides; Z88.1 Allergy status to other antibiotic agents; Z91.041 Radiographic dye allergy status; Z88.5 Allergy status to narcotic agent; Z88.0 Allergy status to penicillin; Z91.013 Allergy to seafood; Z79.899 Other long term (current) drug therapy; Z79.4 Long term (current) use of insulin; Z68.39 Body mass index [BMI] 39.0-39.9, adult
CPT/HCPCS: 0240U; 36415; 36416; 36600; 71045; 71275; 80048; 80053; 82553; 82805; 82945; 83605; 83615; 83735; 83880; 84157; 84484; 85025; 85060; 85379; 85610; 85730; 86480; 87040; 87070; 87077; 87086; 87103; 87116; 87186; 87205; 87206; 87449; 87899; 89051; 93005; 94002; 94003; 96365; 96367; 96375; J0456; J0692; J0696; J1200; J1650; J1815; J2060; J2270; J2704; J2930; J3010; J3370; J3475; J3480; J3490; S0028

== ENCOUNTER 2020-08-06 19:22 | Inpatient (IN) | payer OTHER ==
[2020-08-06] MEDS ORDERED: Ondansetron PF 4 MG/2 ML Vial IVP PRN (19:42)
[2020-08-06] MEDS ORDERED: Haloperidol Lactate 5 MG/ML VIAL SLOW IVP PRN (19:42)
[2020-08-06] MEDS ORDERED: Dexamethasone 4 mg/ml Vial SLOW IVP PRN (19:44)
[2020-08-06] MEDS ORDERED: Lorazepam 2 MG/ML VIAL SLOW IVP PRN (19:45)
[2020-08-06] MEDS ORDERED: BIOTENE MOUTH SPRAY 44.3 ML MM PRN (19:46)
[2020-08-06] MEDS ORDERED: Glycopyrrolate 0.4 MG/ 2 ML VIAL SLOW IVP PRN (19:48)
[2020-08-06] MEDS ORDERED: Atropine Sulfate 1% Ophth Soln 5 ml Bottle PO PRN (19:52)
[2020-08-06] MEDS ORDERED: Artificial Tear Sol 15 ML BOT EA EYE PRN (19:54)
[2020-08-06] MEDS ORDERED: Morphine 2 MG/ML VIAL SLOW IVP PRN ×3 (19:55→19:56)
[2020-08-06] MEDS ORDERED: diphenhydrAMINE 50 MG/ML VIAL IVP PRN (19:57)
[2020-08-06] MEDS ORDERED: diphenhydrAMINE 25 MG CAP PO PRN (19:58)
[2020-08-06] MEDS ORDERED: Lorazepam 1 MG TAB PO PRN (20:00)
[2020-08-06] MEDS: Scopolamine 1.5 mg/72 hour Patch TOP SCH (20:42)
[2020-08-07] MEDS: Morphine 2 MG/ML VIAL SLOW IVP SCH ×10 (04:08→22:29)
[2020-08-07] MEDS: Lorazepam 2 MG/ML VIAL SLOW IVP SCH ×3 (05:35→22:29)
[2020-08-08] MEDS: Morphine 2 MG/ML VIAL SLOW IVP SCH ×11 (02:09→22:10)
[2020-08-08] MEDS: Lorazepam 2 MG/ML VIAL SLOW IVP SCH ×3 (05:04→22:09)
[2020-08-08] MEDS: Lorazepam 2 MG/ML VIAL SLOW IVP PRN ×2 (12:18→17:51)
[2020-08-09] MEDS: Morphine 2 MG/ML VIAL SLOW IVP SCH ×15 (00:10→23:56)
[2020-08-09 01:19] VITALS: BMI 39.1
[2020-08-09] MEDS: Lorazepam 2 MG/ML VIAL SLOW IVP SCH ×3 (06:19→22:10)
[2020-08-09] MEDS ORDERED: Glycopyrrolate 0.2 MG/ML 5 ML SYRINGE SLOW IVP PRN (09:30)
[2020-08-09] MEDS: Scopolamine 1.5 mg/72 hour Patch TOP SCH (09:34)
[2020-08-09] MEDS: Lorazepam 2 MG/ML VIAL SLOW IVP PRN (09:34)
[2020-08-10] MEDS: Morphine 2 MG/ML VIAL SLOW IVP SCH ×13 (02:09→23:57)
[2020-08-10] MEDS: Lorazepam 2 MG/ML VIAL SLOW IVP SCH ×3 (05:53→21:50)
[2020-08-11] MEDS: Morphine 2 MG/ML VIAL SLOW IVP SCH ×12 (02:10→23:58)
[2020-08-11] MEDS: Lorazepam 2 MG/ML VIAL SLOW IVP SCH ×3 (05:56→22:05)
[2020-08-11 20:42] VITALS: BP 80/50; TEMP 98.4
== END 2020-08-12 02:05 | disposition expired | DRG 951 ==
LOC: ONC 19:22
PROVIDERS: ADMIT Internal Medicine Nephrology; ATTEND Internal Medicine Nephrology
DX: Z51.5 Encounter for palliative care (principal); A41.9 Sepsis, unspecified organism; J18.9 Pneumonia, unspecified organism; R65.20 Severe sepsis without septic shock; G93.41 Metabolic encephalopathy; J96.01 Acute respiratory failure with hypoxia; J90 Pleural effusion, not elsewhere classified; C79.9 Secondary malignant neoplasm of unspecified site; Z66 Do not resuscitate; E03.9 Hypothyroidism, unspecified; C50.919 Malignant neoplasm of unspecified site of unspecified female breast; Z88.1 Allergy status to other antibiotic agents; Z79.899 Other long term (current) drug therapy; Z88.5 Allergy status to narcotic agent; Z88.0 Allergy status to penicillin; Z88.2 Allergy status to sulfonamides; Z88.8 Allergy status to other drugs, medicaments and biological substances; Z79.890 Hormone replacement therapy
CPT/HCPCS: J2060; J2270